=== PATIENT | female | born 1995 | race Two or more races ===

== ENCOUNTER 2020-04-21 09:33 | Outpatient (REF) | payer OTHER, SELFPAY | END 2020-04-21 09:34 | disposition home or self-care (01) | LOC: HO.LAB 09:33 | PROVIDERS: Visit Provider Obstetrics & Gynecology | DX: O20.0 Threatened abortion (principal) | CPT/HCPCS: 81025; 87086 ==

== ENCOUNTER 2020-04-28 10:13 | Outpatient (REF) | payer OTHER, SELFPAY ==
--- NOTE | 2020-04-28 | US_ITS ---
EXAMINATION: ULTRASOUND OB LESS THAN 14 WEEKS CLINICAL INFORMATION: Threatened . COMPARISON: None TECHNIQUE: Transabdominal ultrasound pelvis is performed. FINDINGS: The uterus is anteverted measuring 9.90 cm in length, 5.4 cm in AP and 6.8 cm wide. Live intrauterine fetus with visualization of yolk sac and gestational sac. [place]-rump length measures 0.30 cm corresponding to 6 weeks 0 days and SCARLET of 12/22/2020. No motion seen. The heart rate measures 115 beats per minute. A small subchorionic bleed is visualized measuring 1.4 x 0.9 x 1.1 cm. Right ovary measures 4.1 x 2.4 x 2.8 cm. There is anechoic cyst measuring 2.2 x 1.7 x 1.8 cm likely corpus luteal cyst. Left ovary measures 3.1 x 1.6 x 2.3 cm. It appears unremarkable. There is no free fluid. US/US OB transvaginal IMPRESSION: 1. Single live intrauterine fetus with ultrasound gestational age of 6 weeks and 0 days. 2. There is small subchorionic hemorrhage seen. 3. Small corpus luteal cyst seen in right ovary.
--- NOTE | 2020-04-28 10:17 | US_ITS ---
EXAMINATION: ULTRASOUND OB LESS THAN 14 WEEKS CLINICAL INFORMATION: Threatened . COMPARISON: None TECHNIQUE: Transabdominal ultrasound pelvis is performed. FINDINGS: The uterus is anteverted measuring 9.90 cm in length, 5.4 cm in AP and 6.8 cm wide. Live intrauterine fetus with visualization of yolk sac and gestational sac. [place]-rump length measures 0.30 cm corresponding to 6 weeks 0 days and SCARLET of 12/22/2020. No motion seen. The heart rate measures 115 beats per minute. A small subchorionic bleed is visualized measuring 1.4 x 0.9 x 1.1 cm. Right ovary measures 4.1 x 2.4 x 2.8 cm. There is anechoic cyst measuring 2.2 x 1.7 x 1.8 cm likely corpus luteal cyst. Left ovary measures 3.1 x 1.6 x 2.3 cm. It appears unremarkable. There is no free fluid. US/US OB <= 14 weeks fetus IMPRESSION: 1. Single live intrauterine fetus with ultrasound gestational age of 6 weeks and 0 days. 2. There is small subchorionic hemorrhage seen. 3. Small corpus luteal cyst seen in right ovary.
== END 2020-04-28 10:14 | disposition home or self-care (01) ==
LOC: HO.US 10:13
PROVIDERS: PCP Hospitalist; Visit Provider Obstetrics & Gynecology
DX: O20.0 Threatened abortion (principal)
CPT/HCPCS: 76801; 76817

== ENCOUNTER → 2020-05-12 09:56 | Outpatient (BNVA) | payer OTHER, SELFPAY | PROVIDERS: PCP Nurse Practitioner Family; Visit Provider Advanced Practice Midwife | DX: Z76.89 Persons encountering health services in other specified circumstances (principal) | CPT/HCPCS: 99212 ==

== ENCOUNTER 2020-06-04 10:11 | Outpatient (REF) | payer OTHER, SELFPAY ==
[2020-06-05 11:44] LABS: BV Int Neg Control Negative (Negative); BV Int Pos Control Positive (Positive)
[2020-06-05 13:26] LABS: C. trachomatis RNA TMA NOT DETECTED (NOT DETECTED); N. gonorrhoeae RNA TMA NOT DETECTED (NOT DETECTED)
== END 2020-06-04 10:12 | disposition home or self-care (01) ==
LOC: HO.LAB 10:11
PROVIDERS: Visit Provider Obstetrics & Gynecology
DX: O26.899 Other specified pregnancy related conditions, unspecified trimester (principal); R25.2 Cramp and spasm; R11.0 Nausea
CPT/HCPCS: 36415; 81003; 87480; 87491; 87510; 87591; 87660; 99212

== ENCOUNTER 2020-06-11 12:30 | Outpatient (REF) | payer OTHER, SELFPAY ==
--- NOTE | 2020-06-11 12:38 | US_ITS ---
EXAMINATION: OBSTETRICAL ULTRASOUND, FIRST TRIMESTER HISTORY: 24-year-old at 12.4 weeks of gestation NT screening COMPARISON: 04/28/2020 TECHNIQUE: Real time transabdominal imaging with color and M-mode Doppler. FINDINGS: A single, live IUP CRL of 61.0 mm c/w 12.4wks is noted. Heart Rate: 160 beats per minute. Normal yolk sac seen. NT was 1.54.mm. NB Present The embryo appears sonographically wnl for this GA. Both maternal ovaries are seen and appear normal. GESTATIONAL AGE: 1. Established GA: 12.4 wks 2. GA from [facility]: 12.4 wks ESTIMATED DATE OF DELIVERY: 1. Established SCARLET: 12/22/2020 2. SCARLET from [facility]: 12/20/2020 US/US OB 1T nuc measure IMPRESSION: 1. A single live IUP 2. Size equals dates 3. NT of 1.54 mm MFM Consultation: I reviewed the ultrasound findings along with significance of NT measurement. The NT of less than 3mm is generally reassuring. However, the sensitivity for T21 detection is only 60%. I reviewed the availability of serum aneuploidy screening which includes cell-free DNA and placental protein based tests. I discussed the sensitivity, false-positive rate, and other limitations associated with each test. I also reviewed the availability of invasive diagnostic tests that are associated small but definite risk of miscarriage. We also reviewed the differences between screening tests and diagnostic tests. After our discussion, she opted for the First trimester screening that is based on cell-free DNA or non-invasive testing (NIPT). The result will be faxed to your office in approximately 7 days. A follow up at 18 weeks for survey has been scheduled. Thank you very much for this referral. Majority of this visit was spent reviewing her care and counselling her in face to face time: Time spent 30 min.
== END 2020-06-11 12:31 | disposition home or self-care (01) ==
LOC: HO.US 12:30
PROVIDERS: Absent Provider Obstetrics & Gynecology; PCP Hospitalist; Visit Provider Advanced Practice Midwife
DX: Z34.90 Encounter for supervision of normal pregnancy, unspecified, unspecified trimester (principal); Z36.82 Encounter for antenatal screening for nuchal translucency; Z3A.12 12 weeks gestation of pregnancy
CPT/HCPCS: 76813

== ENCOUNTER → 2020-06-30 09:28 | Outpatient (BNVA) | payer OTHER, SELFPAY | PROVIDERS: PCP Hospitalist; Visit Provider Obstetrics & Gynecology | DX: O09.622 Supervision of young multigravida, second trimester (principal) | CPT/HCPCS: 81003; 99212 ==

== ENCOUNTER 2020-07-14 14:23 | Outpatient (REF) | payer OTHER, SELFPAY | END 2020-07-14 14:24 | disposition home or self-care (01) | LOC: HO.LAB 14:23 | PROVIDERS: Visit Provider Internal Medicine | DX: Z20.822 Contact with and (suspected) exposure to COVID-19 (principal) | CPT/HCPCS: 36415; C9803; U0003; U0005 ==

== ENCOUNTER 2020-07-19 09:50 | Outpatient (REF) | payer OTHER, SELFPAY | END 2020-07-19 09:51 | disposition home or self-care (01) | LOC: HO.LAB 09:50 | PROVIDERS: Visit Provider Internal Medicine | DX: Z20.822 Contact with and (suspected) exposure to COVID-19 (principal) | CPT/HCPCS: 36415; C9803; U0003; U0005 ==

== ENCOUNTER → 2020-07-28 14:45 | Outpatient (BNVA) | payer OTHER, SELFPAY | PROVIDERS: Visit Provider Advanced Practice Midwife | DX: Z34.92 Encounter for supervision of normal pregnancy, unspecified, second trimester (principal) | CPT/HCPCS: 81003; 99212 ==

== ENCOUNTER 2020-07-28 15:30 | Outpatient (REF) | payer OTHER, SELFPAY | END 2020-07-28 15:31 | disposition home or self-care (01) | LOC: HO.LAB 15:30 | PROVIDERS: Visit Provider Internal Medicine | DX: Z20.822 Contact with and (suspected) exposure to COVID-19 (principal) | CPT/HCPCS: 36415; C9803; U0003; U0005 ==

== ENCOUNTER 2020-08-06 08:35 | Outpatient (REF) | payer OTHER, SELFPAY ==
--- NOTE | ~2020-08-06 | US_ITS ---
EXAMINATION: US OBSTETRICAL CLINICAL INFORMATION: 24-year-old at 20.4 weeks of gestation Suspected anomaly COMPARISON: 06/11/2020 TECHNIQUE: Real-time transabdominal ultrasound was performed using C1-5 megahertz transducer. FINDINGS: A single, active, fetus is seen in breech presentation. The placenta is anterior without previa, and the amniotic fluid volume is wnl. MEASUREMENTS: 1. Biparietal Diameter: 4.6 cm; 20.0 wks 2. Occipital Frontal Diameter: 6.26 cm 3. Head Circumference: 17.6 cm; 20.1 wks 4. Abdominal Circumference: 15.0 cm; 20.2 wks 5. Femur Length: 3.24 cm; 20.4 wks 6. Humerus Length: 3.1 cm; 20.2 wks 7. Tibia Length: 2.8 cm; 20.1 wks 8. Ulna Length: 2.74 cm; 20.1 wks 9. Lateral ventricle: 0.7 cm 10. Cerebellum: 2.0 cm; 20.5 wks 11. Cisterna Magna: 0.45 cm 12. Nuchal Fold: 7.0 mm 13. Heart Rate: 150 beats per minute Rt ovary: normal Lt ovary: normal Cervical length 4.0 cm on T/A. GESTATIONAL AGE: 1. Established GA: 20.4 wks 2. GA from [facility]: 20.1 wks ESTIMATED DATE OF DELIVERY: 1. Established SCARLET: 12/20/2020 2. SCARLET from [facility]: 12/23/2020 ANATOMY: A nuchal fold was thickened at 7 mm. The visualized anatomy includes but not limited to: 1. Cranium: Normal 2. Intracranial anatomy: cavum septum pellucidi, lateral ventricles, choroid plexus, cerebellum, posterior fossa, third and fourth ventricles. 3. face: orbits, lip/palate, profile, nasal bone 4. Heart: four-chamber view of the heart, ventricular septum, foramen ovale, pulmonary vein, left and right outflow tracts, three-vessel view, 3 vessel trachea view, aortic and ductal arches, situs.. 5. Diaphragm: Normal 6. Abdominal wall: Normal 7. Cord Insertion: Normal 8. Spine: Cervical, thoracic, lumbar, sacral. 9. Stomach: Normal size and shape 10. Right Kidney: Normal 11. Left Kidney: Normal 12. 3 vessel cord: Normal 13. Upper extremity: Open hands, fifth digit. 14. Lower extremity: Tibia, fibula, bilateral feet. 15. Bladder: Normal 16. Genitalia: Male, patient aware US/US OB /maternal detail IMPRESSION: 1. Single, living, intrauterine with appropriate biometry. 2. Thickened nuchal fold 3. AFV: wnl DISCUSSION: I discussed the increased risk of aneuploidy, congenital heart defect and other abnormalities with thickened nuchal fold. Although she had low risk N IPT and normal nuchal translucency in first trimester, increased nuchal fold is concerning. I recommended a referral to the [facility] for genetic/MFM consultation as well as echocardiography. We discussed the limitations of ultrasound in diagnosing aneuploidy and other congenital abnormalities. I reviewed the differences between screening test and diagnostic test. Amniocentesis was discussed and declined. She was informed that the baseline incidence of congenital abnormalities is approximately 3-5%. Not all these conditions are diagnosable in utero. RECOMMENDATIONS: 1. Referral to the [facility] as noted above. 2. f/u as indicated. Thank you for allowing me to participate in her care. Total time 30 minutes. The time spent was devoted to counseling the patient about the disease and diagnosis, coordinating care including reviewing her records, pertinent lab data and studies, as well as discussing diagnostic evaluation and workup, plan therapeutic interventions and future disposition of care. This includes any additional research needed to obtain further information in formulating the plan of care of this patient. This note was generated with a voice recognition program. Please excuse any errors which may have been overlooked during my review of this note. Sometimes these errors may affect the content or meaning of a given sentence.
== END 2020-08-06 08:36 | disposition home or self-care (01) ==
LOC: HO.US 08:35
PROVIDERS: Visit Provider Obstetrics & Gynecology
DX: Z34.82 Encounter for supervision of other normal pregnancy, second trimester (principal)
CPT/HCPCS: 76811

== ENCOUNTER → 2020-08-25 14:48 | Outpatient (BNVA) | payer OTHER, SELFPAY | PROVIDERS: Visit Provider Obstetrics & Gynecology | DX: O28.3 Abnormal ultrasonic finding on antenatal screening of mother (principal); Z3A.23 23 weeks gestation of pregnancy | CPT/HCPCS: 99212 ==

== ENCOUNTER 2020-09-24 14:32 | Outpatient (REF) | payer OTHER, SELFPAY ==
[2020-09-24 15:43] LABS: MANUAL DIFF FLAG NO
[2020-09-24 15:45] LABS: Basophils Percent Auto 0.3 % (0-2); Eosinophils Absolute Auto 0.1 X10*3/uL (0.0-0.4); Eosinophils Percent Auto 0.6 % (0-4); Hematocrit 32.2 % (37-47); Hemoglobin 10.7 g/dl (12.0-16.0); Imm Gran Abs Auto 0.02 X10*3/uL (0.00-0.03); Imm Gran Pct Auto 0.2 % (0.0-0.4); Lymphocytes Percent Auto 22.4 % (20-40); Mean Corpuscular HGB Conc 33.2 g/dl (31.0-35.0); Mean Corpuscular Hemoglobin 28.5 pg (27.0-33.0); Mean Corpuscular Volume 85.6 fL (80-98); Mean Platelet Volume 9.3 fL (9.4-12.3); Monocytes Absolute Auto 0.5 X10*3/uL (0.1-1.2); Neutrophils Absolute Auto 6.2 X10*3/uL (2.0-8.3); Neutrophils Percent Auto 70.5 % (45-73); Platelet Count 225 X10*3/uL (160-400); Red Blood Count 3.76 X10*6/uL (4.20-5.50); Red Cell Distribution Width 13.2 % (11.0-16.0); White Blood Count 8.8 X10*3/uL (4.8-10.8)
[2020-09-24 16:27] LABS: Syphilis Screen Nonreactive (Nonreactive)
[2020-09-27 04:11] LABS: HBsAGNum1 0.16 S/CO (0.00-0.99); Hepatitis B Surface Antigen Negative (Negative); ~HepC Num1 0.05 S/CO (0.00-0.79); ~Hepatitis C Antibody Nonreactive (Nonreactive)
[2020-09-27 04:30] LABS: HIV AB/AG Nonreactive (Nonreactive); HIV Num 1 0.06 S/CO (0.00-0.99)
== END 2020-09-24 14:33 | disposition home or self-care (01) ==
LOC: HO.LAB 14:32
PROVIDERS: Absent Provider Advanced Practice Midwife; PCP Hospitalist; Visit Provider Obstetrics & Gynecology
DX: O99.891 Other specified diseases and conditions complicating pregnancy (principal); M54.6 Pain in thoracic spine; Z3A.27 27 weeks gestation of pregnancy
CPT/HCPCS: 36415; 85025; 86762; 86780; 86787; 86803; 86850; 86900; 86901; 87340; 87389; 99212

== ENCOUNTER → 2020-10-13 15:10 | Outpatient (BNVA) | payer OTHER, SELFPAY | PROVIDERS: PCP Hospitalist; Visit Provider Advanced Practice Midwife | DX: O99.013 Anemia complicating pregnancy, third trimester (principal); Z3A.30 30 weeks gestation of pregnancy | CPT/HCPCS: 81003; 90471; 90715; 99212 ==

== ENCOUNTER → 2020-10-27 09:03 | Outpatient (BNVA) | payer OTHER, SELFPAY | PROVIDERS: PCP Hospitalist; Visit Provider Advanced Practice Midwife | DX: O36.63X0 Maternal care for excessive fetal growth, third trimester, not applicable or unspecified (principal); O99.213 Obesity complicating pregnancy, third trimester; Z3A.32 32 weeks gestation of pregnancy | CPT/HCPCS: 81003; 99212 ==

== ENCOUNTER 2020-10-29 13:31 | Outpatient (REF) | payer OTHER, SELFPAY ==
--- NOTE | ~2020-10-29 | US_ITS ---
EXAMINATION: OBSTETRICAL ULTRASOUND, Follow up HISTORY: 25-year-old at the 32.4 weeks of gestation Large for dates COMPARISON: 08/06/2020 TECHNIQUE: Real time transabdominal imaging with color and M-mode Doppler. PRESENTATION: Vertex PLACENTA LOCATION: Anterior without previa AMNIOTIC FLUID: MARC 11.9 cm MEASUREMENTS: 1. Biparietal Diameter: 8.1 cm; 32.3 wks 2. Head Circumference: 30.6 cm; 34.1 wks 3. Abdominal Circumference: 28.2 cm; 32.2 wks 4. Femur Length: 6.2 cm; 32.2 wks 5. Heart Rate: 140 beats per minute WEIGHT: EFW: 1972 grams (4 lbs 6 oz) -- 35 %. BIOPHYSICAL PROFILE: Motion: 2 Tone: 2 Breathin Amniotic Fluid: 2 Total score: 8/8 GESTATIONAL AGE: 1. Established GA: 32.6 wks 2. GA from [facility]: 32.4 wks ESTIMATED DATE OF DELIVERY: 1. Established SCARLET: 12/20/2020 2. SCARLET from [facility]: 12/18/2020 US/US OB follow up IMPRESSION: 1. A single active fetus is in vertex presentation 2. Size equals dates 3. Reassuring biophysical profile I reviewed today's findings and the limitations of ultrasound and estimating weights. There is normal amount of amniotic fluid volume and the fetus is active. No further ultrasound has been scheduled at this time. Thank you very much for this referral. Total time 20 minutes. The time spent was devoted to counseling the patient about the disease and diagnosis, coordinating care including reviewing her records, pertinent lab data and studies, as well as discussing diagnostic evaluation and workup, plan therapeutic interventions and future disposition of care. This includes any additional research needed to obtain further information in formulating the plan of care of this patient. This note was generated with a voice recognition program. Please excuse any errors which may have been overlooked during my review of this note. Sometimes these errors may affect the content or meaning of a given sentence.
== END 2020-10-29 13:32 | disposition home or self-care (01) ==
LOC: HO.US 13:31
PROVIDERS: Visit Provider Advanced Practice Midwife
DX: O36.63X0 Maternal care for excessive fetal growth, third trimester, not applicable or unspecified (principal); Z3A.32 32 weeks gestation of pregnancy
CPT/HCPCS: 76816

== ENCOUNTER → 2020-11-10 10:27 | Outpatient (BNVA) | payer OTHER, SELFPAY | PROVIDERS: Visit Provider Advanced Practice Midwife | DX: Z34.93 Encounter for supervision of normal pregnancy, unspecified, third trimester (principal); Z3A.34 34 weeks gestation of pregnancy | CPT/HCPCS: 81003; 99212 ==

== ENCOUNTER 2020-11-25 14:31 | Outpatient (REF) | payer OTHER, SELFPAY ==
[2020-11-26 04:50] LABS: CT PCR NOT DETECTED (Not Detect.); NG PCR NOT DETECTED (Not Detect.)
== END 2020-11-25 14:32 | disposition home or self-care (01) ==
LOC: HO.LAB 14:31
PROVIDERS: Visit Provider Advanced Practice Midwife
DX: Z34.93 Encounter for supervision of normal pregnancy, unspecified, third trimester (principal); Z3A.36 36 weeks gestation of pregnancy
CPT/HCPCS: 87081; 87147; 87491; 87591; 99212

== ENCOUNTER → 2021-01-12 13:31 | Outpatient (BNVA) | payer OTHER, SELFPAY | PROVIDERS: Visit Provider Advanced Practice Midwife | DX: Z39.2 Encounter for routine postpartum follow-up (principal); Z30.011 Encounter for initial prescription of contraceptive pills | CPT/HCPCS: 99212 ==

== ENCOUNTER → 2021-07-11 14:24 | Outpatient (BNVA) | payer OTHER, SELFPAY | PROVIDERS: Visit Provider Advanced Practice Midwife | DX: Z30.41 Encounter for surveillance of contraceptive pills (principal) | CPT/HCPCS: 81025 ==

== ENCOUNTER 2022-07-12 12:41 | Outpatient (REF) | payer OTHER, SELFPAY ==
[2022-07-12 14:58] LABS: Hematocrit 42.7 % (37.0-47.0); Hemoglobin 13.9 g/dl (12.0-16.0); Mean Corpuscular HGB Conc 32.6 g/dl (31.0-35.0); Mean Corpuscular Hemoglobin 27.6 pg (27.0-33.0); Mean Corpuscular Volume 84.7 fL (80.0-98.0); Mean Platelet Volume 9.5 fL (9.4-12.3); Platelet Count 271 X10*3/uL (160-400); Red Blood Count 5.04 X10*6/uL (4.20-5.50); Red Cell Distribution Width 13.1 % (11.0-16.0); White Blood Count 6.7 X10*3/uL (4.8-10.8)
[2022-07-12 16:48] LABS: Thyroid Stimulating Hormone 0.84 uIU/mL (0.32-4.0)
[2022-07-12 18:08] LABS: CT PCR NOT DETECTED (Not Detect.); NG PCR NOT DETECTED (Not Detect.)
== END 2022-07-12 12:42 | disposition home or self-care (01) ==
LOC: HO.LAB 12:41
PROVIDERS: Visit Provider Advanced Practice Midwife
DX: Z01.419 Encounter for gynecological examination (general) (routine) without abnormal findings (principal); N92.0 Excessive and frequent menstruation with regular cycle; Z20.2 Contact with and (suspected) exposure to infections with a predominantly sexual mode of transmission
CPT/HCPCS: 0353U; 84443; 85027; 88142

== ENCOUNTER 2023-01-26 08:44 | Emergency (ER) | payer OTHER, SELFPAY ==
[2023-01-26 08:53] VITALS: BP 99/65; PULSE 78; RESP 17; TEMP 36.8; O2SAT 99; BMI 29.5
--- NOTE | 2023-01-26 09:25 | ED.FEMALEGU ---
HPI - Female Genitourinary General Chief complaint: Urogenital-Female Stated complaint: UTI? Time Seen by Provider: 01/26/23 09:24 Source: patient, RN notes reviewed and old records reviewed Mode of arrival: ambulatory History of Present Illness HPI Narrative: 27-year-old female with a past medical history of asthma presenting to the ED complaining of suspected UTI with dysuria & urinary frequency x2 days. has been increasing water intake /drinking cranberry juice with some relief. LMP ended 01/21. Reports chronic back pain with menstruation which just ended, unchanged. Denies fever/chills, abdominal pain, nausea /vomiting, vaginal bleeding /discharge MD elicited complaint: dysuria and UTI Related Data Previous Rx's Medication Instructions Recorded norethindrone acetate 1.5 1 tab PO DAILY 3 months #90 tabs 07/12/22 mg-ethinyl estradiol 30 mcg tablet (Microgestin) nitrofurantoin 100 mg PO Q12H 7 days #14 caps 01/26/23 monohydrate/macrocrystals 100 mg capsule (Macrobid) phenazopyridine 200 mg tablet 200 mg PO TID PRN pain 6 doses #6 01/26/23 (Pyridium) tabs Allergies Allergy/AdvReac Type Severity Reaction Status Date / Time No Known Allergies Allergy Verified 07/12/22 13:03 Review of Systems Review of Systems: Constitutional: No Fever, No Chills ENT/Mouth: No Ear Pain, No Nasal Congestion, No sore throat, No Rhinorrhea, No Swallowing Difficulty Cardiovascular: No Chest Pain, No SOB Respiratory: No Cough, No Sputum Gastrointestinal: No Nausea, No Vomiting, No Abdominal pain Genitourinary: + Dysuria, +Urinary Frequency, No Hematuria, No Urinary Incontinence/retention, No Urgency, No Flank Pain Musculoskeletal: No joint pain, No Myalgias, No Joint Swelling Skin: No Skin Lesions, No rash Neuro: No Weakness, No Numbness, No Paresthesias Yes all other systems are reviewed and are negative Constitutional: Constitutional: Reports as per [facility] Past Medical History Attestation statement: The following information was validated with the patient. Source: old records reviewed Medical History History of asthma Family History Family History Mother Pre-diabetes Father History of hypertension Maternal Grandmother No problems noted. Maternal Grandfather No problems noted. Paternal Grandmother No problems noted. Paternal Grandfather No problems noted. Sister No problems noted. Social History Social History Household Members: Significant Other and Children Alcohol intake: never Smoked in Last 30 Days: No Advance Directives: No Advance Directives Information Provided: Yes Patient : No Sexual orientation: Straight/Heterosexual Gender identity: Female Physical Exam Vital Signs: Vital Signs: Last Vital Signs Temp 98.2 F 01/26/23 08:53 Pulse 78 01/26/23 08:53 Resp 17 01/26/23 08:53 BP 99/65 01/26/23 08:53 Pulse Ox 99 01/26/23 08:53 O2 Del Method Room Air 01/26/23 08:53 BMI result Body Mass Index 29.5 Const: General: cooperative, healthy appearing and no acute distress Orientation/consciousness: patient oriented x3 Limitations: no limitations HEENT: Head: Yes normal to inspection and Yes atraumatic Ears: hearing grossly normal bilaterally General nose exam: Normal external nose present Face and sinus: Yes normal facial exam Eyes: General: appearance normal, both eyes and all related structures EOM: EOMs intact bilaterally Neck: Neck: Yes normal visual inspection and Yes no meningeal signs Resp: Effort & Inspection: normal respiratory effort and no respiratory distress Cardio: Rate: regular rate GI: Inspection: Yes normal to inspection Palpation (GI): Soft to palpation, nontender, no guarding and not rigid : General: Yes no CVA tenderness Back/Spine/Pelvis: Back: no CVA tenderness Skin: Rashes: no rashes Wounds: no wounds Neuro: General: patient oriented x3, tone normal and no meningeal signs Cranial nerves: Yes CN's II-XII intact bilaterally Gait exam (Neuro): Normal gait present Extrem: General: Yes normal to inspection Course Course Course Narrative: - UA infected. negative Results discussed with patient including worrisome signs and symptoms and strict return precautions, and when to return to the emergency department. They verbalized understanding and feel safe for discharge at this time. Medical Decision Making Medical Decision Making MDM Narrative: 27-year-old female with a past medical history of asthma presenting to the ED complaining of suspected UTI with dysuria & urinary frequency x2 days. on exam vital signs stable, NAD, nontoxic appearing, abdomen soft/ nontender, no CVAT. Concern for UTI. Lower suspicion for pyelo/renal stone, STI, ovarian torsion or appendicitis/ diverticulitis plan: UA, urine Please refer to course for remaining clinical decision making, interpretation of labs/imaging results, and discussions with consultants and/or family members. Differential Diagnosis Differential Diagnoses: The differential diagnosis associated with the presentation includes As above Admission/Observation Consideration of admission/observation: Escalation of care including admission/observation considered Lab Data MDM Lab Attestation statement: I reviewed the patient's lab results. Labs: Lab Results 01/26/23 Range/Units 09:08 Urine Color Yellow Urine Appearance Clear Urine pH 7.0 (5.0-9.0) Ur Specific [place] <= 1.005 (1.005-1.025) Urine Protein Negative (Neg-Trace) mg/dL Urine Glucose (UA) Negative (Negative) mg/dL Urine Ketones Negative (Negative) mg/dL Urine Blood Negative (Negative) Urine Nitrite Negative (Negative) Ur Leukocyte Esterase Moderate (2+) H (Negative) Urine RBC 0-2 (0-2) /HPF Urine WBC 11-20 H (0-5) /HPF Ur Squamous Epith Cells 3-5 (0-2) /HPF Urine Bacteria None Seen (None Seen) Hyaline Casts 0-2 (0-2) /LPF Urine Test NEGATIVE (NEGATIVE) External Record Review External record reviewed: Inpatient record, Office record, Outpatient record, Prior outpatient labs, Prior outpatient radiology, Primary care record and Outside ED record Tests considered The following testing was considered but not selected: As above Prescription Management I considered prescription management with: Pain Medication and Antibiotic Discharge Plan Discharge Clinical Impression: Urinary tract infection Patient Disposition: Home, Self-Care Instructions: Urinary Tract Infection in Women (DC) Additional Instructions: you have a urinary tract infection Macrobid is an antibiotic please take as prescribed Pyridium will help with urinary discomfort, this turns your urine orange this is normal Her urine was negative Follow-up with her doctor If symptoms persist or worsen you develop abdominal pain, back pain, nausea / vomiting or fever return to the ED Prescriptions: New phenazopyridine [Pyridium] 200 mg tablet 200 mg PO TID PRN (Reason: pain) Qty: 6 0RF nitrofurantoin monohyd/m-cryst [Macrobid] 100 mg capsule 100 mg PO Q12H 7 Days Qty: 14 0RF Rx Instructions: must administer with a meal/food No Action norethindrone ac-eth estradiol [Microgestin 1.5 (21)] 1.5-30 mg-mcg tablet 1 tab PO DAILY 90 Days Qty: 90 4RF Referrals: Physician,None [Primary Care Provider] - Interventions: ED Discharge Assessment Last Done: 01/26/23 09:49 Discharge Date/Time: 01/26/23 09:50
[2023-01-26 09:30] LABS: Appearance Urine Clear; Color Urine Yellow; Glucose Urine UA Negative (Negative); Leukocyte Esterase Urine Moderate (2+) (Negative); Nitrite Urine Negative (Negative); Specific Gravity - Urine <= 1.005 (1.005-1.025); UMIC TRIGGER UACC YES; Urine Blood Negative (Negative); Urine Ketones Negative (Negative); Urine Protein Negative (Neg-Trace)
[2023-01-26 09:34] LABS: UPreg QC Valid YES; Urine Pregnancy NEGATIVE (NEGATIVE)
[2023-01-26 09:35] LABS: Bacteria Urine None Seen (None Seen); Hyaline Casts Urine 0-2 /LPF (0-2); RBC Urine 0-2 /HPF (0-2); UACC Culture Trigger YES
== END 2023-01-26 09:50 | disposition home or self-care (01) ==
PROVIDERS: Emergency Provider Emergency Medicine Emergency Medical Services
DX: N39.0 Urinary tract infection, site not specified (principal); B95.7 Other staphylococcus as the cause of diseases classified elsewhere
CPT/HCPCS: 81001; 81025; 87086; 87088; 87186; 99282; 99283; 99284

== ENCOUNTER 2023-03-12 11:12 | Outpatient (AMB) | payer OTHER, SELFPAY ==
[2023-03-12 11:15] VITALS: BP 108/70; BMI 29.3
--- NOTE | 2023-03-12 11:15 | MHC.PC.OV ---
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 Accompanied by: Self / Same As Patient Allergies No Known Allergies Allergy (Verified 03/12/23 11:24) Medication List - Last Reconciled 03/12/23 by CYRIL Wright norethindrone ac-eth estradiol 1.5-30 mg-mcg (Microgestin) 1 tab PO DAILY 3 months Tobacco use date assessed: 03/12/23 Dental Screening Dental Screen Date: 03/12/23 Did you have a dental visit in the last 12 months?: Yes Did you have a dental problem in the last 6 months where you did not have access to dental care?: No Was dental information given to patient?: Patient has dentist HPI HPI Comments History of Present Illness Details 27-year-old female new patient presents today to establish care, previous patient Nabila Ochoa. Past medical history significant for Asthma, patient reports 1x a day requiring albuterol. Patient reports has been using her son's inhaler as she has not had 1. Prescription sent for albuterol inhaler. PFTs ordered and referral entered to pulmonology Fatigued x 2 years, patient reports she did have iron deficiency anemia during . Labs ordered to further evaluate. [facility] Medical History History of asthma Surgical History History of eye surgery History of wisdom tooth extraction Family History Mother Pre-diabetes Father History of hypertension Maternal Grandmother No problems noted. Maternal Grandfather No problems noted. Paternal Grandmother No problems noted. Paternal Grandfather No problems noted. Sister No problems noted. Social History (Updated 03/12/23 @ 11:25 by CYRIL Wright) Household Members: Significant Other and Children Both parents involved: Yes Housing: Apartment Alcohol intake: current Alcohol intake frequency: holidays/special occasions only Patient Tobacco Use Status: Never used Tobacco Smoked in Last 30 Days: No e-Cigarette/Vaping Use: Never Used Second Hand Smoke Exposure: No Use of substances other than those prescribed or required for medical reasons: No service: No Current occupational status: unemployed Sexual orientation: Straight/Heterosexual Gender identity: Female Cognitive needs: No Hearing needs: No Vision needs: No Female Reproductive History Menstrual Age of Menarche: 14 Questionnaire PHQ-9 Over the last 2 weeks, how often have you been bothered by any of the following problems? 1. Little interest or pleasure in doing things: not at all 2. Feeling down, depressed, or hopeless: not at all 3. Trouble falling or staying asleep, or sleeping too much: not at all 4. Feeling tired or having little energy: not at all 5. Poor appetite or overeating: not at all 6. Feeling bad about yourself - or that you are a failure or have let yourself or your family down: not at all 7. Trouble concentrating on things, such as reading the newspaper or watching television: not at all 8. Moving or speaking so slowly that other people could have noticed. Or the opposite - being so fidgety or restless that you have been moving around a lot more than usual: not at all 9. Thoughts that you would be better off or of hurting yourself in some way: not at all Total score: 0 Depression Screening Interpretation: Negative Depression Screening Done: Yes 20828 - PHQ-9 Billing: Yes Source: Developed by Drs. Randal Douglas, Carmen Khoury, aBy Santiago and colleagues, with an educational shiva from [employer] Thrive Questionnaire Date Thrive assessed: 03/12/23 I am a: Patient What is your living situation today?: I have a steady place to live Within the past 12 months, did the food you bought not last and you didn't have the money to get more?: Never true Within the past 12 months, did you worry whether your food would run out before you got money to buy more?: Never true Do you have trouble paying for medicines?: No Do you have trouble getting transportation to medical appointments?: No Do you have trouble paying your heating and electricity bill?: No Do you have trouble taking care of your child, family member or friend?: No Do you have trouble with day-to-day activities such as bathing, preparing meals, shopping, managing finances, etc.?: No Are you currently unemployed and looking for a job?: No Are you interested in more education?: No Please select the resources that you would like help with: None Currently or been in a relationship where the following occur: no concerns reported JAIDEN-7 AMB Questionnaire JAIDEN-7 Date JAIDEN - 7 assessed: 03/12/23 Feeling nervous, anxious, or on edge: 3 = Nearly every day Not being able to stop or control worryin = Several days Worrying too much about different things: 1 = Several days Trouble relaxin = Not at all Being so restless that it is hard to sit still: 0 = Not at all Becoming easily annoyed or irritable: 0 = Not at all Feeling afraid as if something awful might happen: 1 = Several days Total JAIDEN-7 score (0-4 normal; 5-9 mild; 10-14 moderate; 15-21 severe): 6 Source: Developed by Drs. Randal Douglas, Carmen Khoury, Bay Santiago and colleagues, with an educational shiva from [employer] JAIDEN-7 Assessment Billing JAIDEN-7 Assessment Tool: JAIDEN-7 Assessment 55821 Review of Systems Const Denies chills, Reports fatigue, Denies fever(s) and Denies poor appetite Eyes Denies no additional complaints ENT Reports Normal hearing present Card Denies chest pain, Denies syncope, Denies rapid heart rate and Denies dyspnea Resp Denies cough and Denies dyspnea GI Denies change in stool character, Denies constipation, Denies diarrhea, Denies nausea and Denies vomiting Denies urinary frequency, Denies dysuria and Denies urinary urgency Neuro Reports Normal hearing present, Denies confusion and Denies syncope Psych Denies confusion Endo Reports fatigue Physical exam (Primary Care) Vital Signs: Last Vital Signs BP 108/70 03/12/23 11:15 BMI result Body Mass Index 29.3 Tobacco/Smoking Status: Tobacco use Status Tobacco use date assessed 03/12/23 03/12/23 11:22 Patient Tobacco Use Status Never used Tobacco 03/12/23 11:25 e-Cigarette/Vaping Use Never Used 03/12/23 11:25 PHQ-9: PHQ-9 Score PHQ-9: Total score 0 03/12/23 12:03 Depression Screening Interpretation: Negative Thrive Assessment: Date of Thrive Assessment Date Thrive assessed 03/12/23 03/12/23 11:22 Currently or been in a relationship where the following occur: no concerns reported Const General: No confusion Orientation/consciousness: No confusion HENMT Head: Yes normocephalic and Yes atraumatic Eyes Conjunctivae: conjunctivae normal Chest Chest palpation & inspection: normal inspection of the chest Resp Effort & Inspection: normal respiratory effort Auscultation: clear to auscultation bilaterally, no crackles, no rhonchi and no wheezes Cardio Rate: regular rate Rhythm: regular rhythm Heart sounds: S1 normal heart sound present and S2 normal heart sound present GI Inspection: Yes normal to inspection Neuro General: No confusion Cranial nerves: Yes Normal hearing present Extrem General: No edema Office Procedures Flu Questionnaire Does the patient have a severe egg allergy?: No Immunizations flu vacc [id number] 6mos up(PF) 60 mcg(15 mcgx4)/0.5 mL IM syringe Performing Provider: CYRIL Wright [facility] Documented (not given) by: JOCELYNE Victor on 03/12/23 12:03 Reason Not Given: Not Given Assessment and Plan Assessment & Plan (1) History of asthma: Code(s): Z87.09 - Personal history of other diseases of the respiratory system Plan: Continue on albuterol as needed. PFTs ordered, referral entered to pulmonology. (2) Fatigue: Code(s): R53.83 - Other fatigue Plan: Complete blood work ordered to further evaluate. Plan Keep scheduled physical exam with pcp Orders: Orders IRON PROFILE Today R53.83 - Other fatigue Ferritin Today R53.83 - Other fatigue PFT pulmonary function test Today Z87.09 - Personal history of other diseases of the respiratory system Complete Blood Count Auto Diff Today R53.83 - Other fatigue Comprehensive Met. Panel Today R53.83 - Other fatigue TSH reflex Free T4 Today R53.83 - Other fatigue Influenza [id number] Immunization Today Z23 - Encounter for immunization Referrals Pulmonology Referral Z87.09 - Personal history of other diseases of the respiratory system Medications: New flu vacc [id number] 6mos up(PF) 0.5 mL IM ONCE 0.5 mL 0RF Z23 - Encounter for immunization albuterol sulfate 90 mcg/actuation 2 puffs inhalation Q4-6H PRN 6.7 grams 0RF shortness of breath or wheezing Coding Level of Care Code Est Pt Level 3 (09946) Diagnoses History of asthma Z87.09 Fatigue R53.83 Additional Codes JAIDEN-7 Assessment Billing - JAIDEN-7 Assessment Tool: JAIDEN-7 Assessment 91105 ([id number])
== END 2023-03-12 11:43 | disposition home or self-care (01) ==
PROVIDERS: Visit Provider Nurse Practitioner Family
DX: R53.83 Other fatigue (principal); Z87.09 Personal history of other diseases of the respiratory system
CPT/HCPCS: 99213

== ENCOUNTER 2023-03-14 09:04 | Outpatient (REF) | payer OTHER, SELFPAY ==
[2023-03-14 09:13] LABS: MANUAL DIFF FLAG NO
[2023-03-14 09:34] LABS: Basophils Absolute Auto 0.1 X10*3/uL (0.0-0.2); Basophils Percent Auto 1.7 % (0-2); Eosinophils Absolute Auto 0.1 X10*3/uL (0.0-0.4); Eosinophils Percent Auto 2.6 % (0-4); Hematocrit 42.2 % (37.0-47.0); Hemoglobin 13.7 g/dl (12.0-16.0); Imm Gran Abs Auto 0.02 X10*3/uL (0.00-0.03); Imm Gran Pct Auto 0.4 % (0.0-0.4); Lymphocytes Absolute Auto 1.9 X10*3/uL (1.2-4.9); Mean Corpuscular HGB Conc 32.5 g/dl (31.0-35.0); Mean Corpuscular Hemoglobin 27.5 pg (27.0-33.0); Mean Corpuscular Volume 84.7 fL (80.0-98.0); Mean Platelet Volume 8.9 fL (9.4-12.3); Monocytes Absolute Auto 0.4 X10*3/uL (0.1-1.2); Monocytes Percent Auto 8.3 % (2-11); Neutrophils Absolute Auto 2.1 x10*3/uL (2.0-8.3); Platelet Count 301 X10*3/uL (160-400); Red Blood Count 4.98 X10*6/uL (4.20-5.50); Red Cell Distribution Width 12.9 % (11.0-16.0); White Blood Count 4.6 X10*3/uL (4.8-10.8)
[2023-03-14 10:49] LABS: Alanine Aminotransferase 13 U/L (0-31); Albumin Level 4.2 g/dL (3.5-5.0); Alkaline Phosphatase 52 U/L (39-117); Anion Gap 14 (12-20); Aspartate Amino Transferase 15 U/L (5-31); Bilirubin Total 0.3 mg/dL (0.0-1.0); Blood Urea Nitrogen 9 mg/dL (9-16); Calcium 9.1 mg/dL (8.4-10.2); Carbon Dioxide 24 mmol/L (22-29); Chloride 108 mmol/L (96-108); Estimated Glomerular Filt Rate > 60; Glucose Random 80 mg/dL (60-115); Iron 36 mcg/dL (30-160); Percent Iron Saturation 10 % (15-50); Potassium 3.9 mmol/L (3.3-5.1); Sodium 142 mmol/L (135-145); Total Iron Binding Capacity 376 mcg/dL (228-428); Total Protein 7.7 g/dL (6.5-8.0); Unsaturated Iron Binding 340 ug/dL
[2023-03-14 11:11] LABS: Ferritin 6 ng/mL (10-122); TSH reflex Free T4 0.93 uIU/mL (0.32-4.0)
== END 2023-03-14 09:05 | disposition home or self-care (01) ==
LOC: HO.LAB 09:04
PROVIDERS: PCP Internal Medicine; Visit Provider Nurse Practitioner Family
DX: R53.83 Other fatigue (principal)
CPT/HCPCS: 36415; 80053; 82728; 83540; 84443; 85025

== ENCOUNTER 2023-03-16 10:40 | Outpatient (AMB) | payer OTHER, SELFPAY ==
[2023-03-16 10:48] VITALS: BP 98/78; BMI 29.5
--- NOTE | 2023-03-16 10:48 | A.OFFPC_ITS ---
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 Accompanied by: Self / Same As Patient Allergies No Known Allergies Allergy (Verified 03/16/23 11:10) Medication List - Last Reconciled 03/16/23 by Maximo Luis MD albuterol sulfate 90 mcg/actuation 2 puffs inhalation Q4-6H PRN norethindrone ac-eth estradiol 1.5-30 mg-mcg (Microgestin) 1 tab PO DAILY 3 months Tobacco use date assessed: 03/16/23 Dental Screening Dental Screen Date: 03/16/23 Did you have a dental visit in the last 12 months?: Yes Did you have a dental problem in the last 6 months where you did not have access to dental care?: No Was dental information given to patient?: Patient has dentist HPI F/U HPI Details Patient comes in today for her follow up visit Was seen by midlevel here earlier this week for her initial visit - was a new patient to the practice then - and was sent for some screening labs when she complained of frequent fatigue She was also started back on Albuterol inhaler for her asthma - states that she's had asthma since her childhood years but does not have a rescue inhaler on hand and has been using her son's inhaler for the past couple of months States that she has been working at a [employer] place for the past 5 years now and is constantly exposed to nail slovenian (acrylic), which she feels aggravates her asthma She has been referred for PFT and pulmonary evaluation and is scheduled to have both of these done early next month Adds that she has 2 small children and wakes up at least 2 or 3 times a night when her younger child cries States that she has no trouble going back to sleep right away and on average, ge ts at least 7 to 8 hours of sleep at night She denies any headaches or dizziness Denies any chest pains No nausea/vomiting, no abdominal pain No change in bowel habits noted Would like to know how she did on her labs done a couple of days ago [facility] Medical History (Updated 03/16/23 @ 11:39 by Maximo Luis MD) Overweight (BMI 25.0-29.9) Asthma Surgical History (Updated 03/16/23 @ 11:16 by Maximo Luis MD) History of eye surgery History of wisdom tooth extraction Family History Mother Pre-diabetes Father History of hypertension Maternal Grandmother No problems noted. Maternal Grandfather No problems noted. Paternal Grandmother No problems noted. Paternal Grandfather No problems noted. Sister No problems noted. Social History Household Members: Significant Other and Children Both parents involved: Yes Housing: Apartment Alcohol intake: current Alcohol intake frequency: holidays/special occasions only Patient Tobacco Use Status: Never used Tobacco e-Cigarette/Vaping Use: Never Used Second Hand Smoke Exposure: No service: No Current occupational status: unemployed Sexual orientation: Straight/Heterosexual Gender identity: Female Cognitive needs: No Hearing needs: No Vision needs: No Female Reproductive History Menstrual Age of Menarche: 14 Questionnaire PHQ-9 Over the last 2 weeks, how often have you been bothered by any of the following problems? 1. Little interest or pleasure in doing things: not at all 2. Feeling down, depressed, or hopeless: not at all 3. Trouble falling or staying asleep, or sleeping too much: not at all 4. Feeling tired or having little energy: not at all 5. Poor appetite or overeating: not at all 6. Feeling bad about yourself - or that you are a failure or have let yourself or your family down: not at all 7. Trouble concentrating on things, such as reading the newspaper or watching television: not at all 8. Moving or speaking so slowly that other people could have noticed. Or the opposite - being so fidgety or restless that you have been moving around a lot more than usual: not at all 9. Thoughts that you would be better off or of hurting yourself in some way: not at all Total score: 0 Depression Screening Interpretation: Negative Depression Screening Done: Yes 93462 - PHQ-9 Billing: Yes Source: Developed by Drs. Randal Douglas, Carmen Khoury, Bay Santiago and colleagues, with an educational shiva from [employer]. Thrive Questionnaire Date Thrive assessed: 03/16/23 I am a: Patient What is your living situation today?: I have a steady place to live Within the past 12 months, did the food you bought not last and you didn't have the money to get more?: Never true Within the past 12 months, did you worry whether your food would run out before you got money to buy more?: Never true Do you have trouble paying for medicines?: No Do you have trouble getting transportation to medical appointments?: No Do you have trouble paying your heating and electricity bill?: No Do you have trouble taking care of your child, family member or friend?: No Do you have trouble with day-to-day activities such as bathing, preparing meals, shopping, managing finances, etc.?: No Are you currently unemployed and looking for a job?: No Are you interested in more education?: No Please select the resources that you would like help with: None Currently or been in a relationship where the following occur: no concerns reported AUDIT C Alcohol Use Questionnaire (AUDIT-C) 1. How often do you have a drink containing alcohol?: Never 3. How often do you have six or more drinks on one occasion?: Never Total Score: 0 Score Reviewed/Action Taken: Yes JAIDEN-7 AMB Questionnaire JAIDEN-7 Date JAIDEN - 7 assessed: 03/16/23 Feeling nervous, anxious, or on edge: 3 = Nearly every day Not being able to stop or control worryin = Several days Worrying too much about different things: 1 = Several days Trouble relaxin = Not at all Being so restless that it is hard to sit still: 0 = Not at all Becoming easily annoyed or irritable: 0 = Not at all Feeling afraid as if something awful might happen: 1 = Several days Total JAIDEN-7 score (0-4 normal; 5-9 mild; 10-14 moderate; 15-21 severe): 6 Source: Developed by Drs. Randal Douglas, Carmen Khoury, Bay Santiago and colleagues, with an educational shiva from [employer]. JAIDEN-7 Assessment Billing JAIDEN-7 Assessment Tool: JAIDEN-7 Assessment 37413 Review of Systems Const Denies chills, Denies difficulty sleeping, Reports fatigue, Denies fever(s) and Denies headache(s) ENT Denies dysphagia, Denies dizziness, Denies otalgia, Denies headache(s), Denies neck pain, Denies odynophagia and Denies sore throat Card Denies chest pain, Denies palpitations and Denies dyspnea Resp Denies chest congestion, Denies cough and Denies dyspnea GI Denies abdominal pain, Denies constipation, Denies dysphagia, Denies heartburn, Denies diarrhea, Denies nausea, Denies odynophagia and Denies vomiting Denies difficulty voiding, Denies nocturia and Denies dysuria Musc Denies back pain and Denies neck pain Skin/Breast Denies rash Neuro Denies dizziness and Denies headache(s) Endo Reports fatigue and Denies palpitations Physical exam (Primary Care) Vital Signs: Last Vital Signs BP 98/78 03/16/23 10:48 Oxygen Delivery Method Room Air 03/16/23 10:48 BMI result Body Mass Index 29.5 Tobacco/Smoking Status: Tobacco use Status Tobacco use date assessed 03/16/23 03/16/23 10:52 Patient Tobacco Use Status Never used Tobacco 03/16/23 10:52 e-Cigarette/Vaping Use Never Used 03/16/23 10:52 PHQ-9: PHQ-9 Score PHQ-9: Total score 0 03/16/23 10:52 Depression Screening Interpretation: Negative Thrive Assessment: Date of Thrive Assessment Date Thrive assessed 03/16/23 03/16/23 10:52 Currently or been in a relationship where the following occur: no concerns reported Const General: no acute distress and alert HENMT Ears: TM's normal bilaterally and EAC's normal Throat: Yes posterior oropharynx normal and Yes tonsils normal (no TP congestion) Neck Neck: Yes no lymphadenopathy and Yes supple Resp Auscultation: clear to auscultation bilaterally, no rales and no wheezes Cardio Rate: regular rate Rhythm: regular rhythm Heart sounds: no murmurs GI Palpation (GI): Soft to palpation and nontender Auscultation: normal bowel sounds Skin General skin exam: no rashes or lesions noted Rashes: no rashes Extrem General: Yes no clubbing, cyanosis or edema Results Reviewed Results Reviewed: Laboratory Tests 03/14/23 09:11 WBC 4.6 L Hgb 13.7 Hct 42.2 Plt Count 301 Sodium 142 Potassium 3.9 Creatinine 0.78 Estimated GFR > 60 Random Glucose 80 Calcium 9.1 Iron 36 TIBC 376 % Saturation 10 L Ferritin 6 L AST 15 ALT 13 Total Protein 7.7 Albumin 4.2 TSH 0.93 Assessment and Plan Assessment & Plan (1) Asthma: Code(s): J45.909 - Unspecified asthma, uncomplicated Qualifiers: Asthma severity: unspecified severity Asthma persistence: unspecified Asthma complication type: uncomplicated Qualified Code(s): J45.909 - Unspecified asthma, uncomplicated Plan: Continue Albuterol HFA 1 to 2 inhalations Q 6 hours PRN for now States that her chest feels better lately since she has her own Albuterol inhaler to use now when needed; was using her son's inhaler previously and was trying to use it as sparingly as possible She has been referred to and is now scheduled for PFTs on 04/16/2023 for further evaluation She is also scheduled to see pulmonary next month (04/18/23) for further evaluation and management of her asthma (2) Fatigue: Code(s): R53.83 - Other fatigue Qualifiers: Fatigue type: unspecified Qualified Code(s): R53.83 - Other fatigue Plan: Results of her labs done a couple of days ago reviewed and discussed with jennie zarate Is advised that there are no lab findings here that can help explain her fatigue - advised that her fatigue may be likely related to her asthma or to her having to wake up a few times in the middle of the night to tend to her youngest child Will wait and see how her PFTs and pulmonary evaluation comes out and we will address this further if this persists (3) Overweight (BMI 25.0-29.9): Code(s): E66.3 - Overweight Plan: Discussed diet/exercise as tolerated/lose weight Plan Follow up in 3 months Coding Level of Care Code Est Pt Level 4 (78077) Diagnoses Uncomplicated asthma, unspecified asthma severity, unspecified whether persistent J45.909 Asthma severity: unspecified severity Asthma persistence: unspecified Asthma complication type: uncomplicated Fatigue, unspecified type R53.83 Fatigue type: unspecified Overweight (BMI 25.0-29.9) E66.3 Additional Codes JAIDEN-7 Assessment Billing - JAIDEN-7 Assessment Tool: JAIDEN-7 Assessment 99344 ([id number])
== END 2023-03-16 11:24 | disposition home or self-care (01) ==
PROVIDERS: Visit Provider Internal Medicine
DX: J45.909 Unspecified asthma, uncomplicated (principal); R53.83 Other fatigue; E66.3 Overweight
CPT/HCPCS: 99214

== ENCOUNTER 2023-04-16 14:55 | Outpatient (REF) | payer OTHER, SELFPAY ==
--- NOTE | 2023-04-16 15:43 | PFT_ITS ---
Indication: Asthma Spirometry [FEV1 to FVC 81%; FEV1 3.26 L which is 103% predicted; FVC 4.01 L which is 99% predicted. No significant response to bronchodilators noted. Maximum voluntary ventilation 45% predicted.] Lung Volumes [Total lung capacity 108% predicted] Diffusion Capacity [DLCO 120% predicted] Flow Volume Loops [Normal] Comparisons [None] Interpretation [No obstructive nor restrictive ventilatory defects identified. No significant response to bronchodilators noted. There is a moderate to severe decrease in the maximum voluntary ventilation which could be secondary to deconditioning although cannot rule out neuromuscular disease. Lung volumes are within normal limits. Diffusing capacity also within normal limits. If asthma is in the differential a methacholine challenge may be helpful in assessing for hyperactive airways. Clinical correlation warranted.] MTDD
== END 2023-04-16 14:56 | disposition home or self-care (01) ==
LOC: HO.RESP 14:55
PROVIDERS: PCP Internal Medicine; Visit Provider Nurse Practitioner Family
DX: Z87.09 Personal history of other diseases of the respiratory system (principal)
CPT/HCPCS: 94010; 94727; 94729

== ENCOUNTER 2023-04-18 10:35 | Outpatient (REF) | payer OTHER, SELFPAY ==
[2023-04-18 11:41] LABS: MANUAL DIFF FLAG NO
[2023-04-18 12:06] LABS: Basophils Absolute Auto 0.1 X10*3/uL (0.0-0.2); Basophils Percent Auto 0.8 % (0-2); Eosinophils Absolute Auto 0.1 X10*3/uL (0.0-0.4); Eosinophils Percent Auto 1.1 % (0-4); Hematocrit 40.7 % (37.0-47.0); Imm Gran Abs Auto 0.02 X10*3/uL (0.00-0.03); Imm Gran Pct Auto 0.3 % (0.0-0.4); Lymphocytes Absolute Auto 2.3 X10*3/uL (1.2-4.9); Lymphocytes Percent Auto 34.9 % (20-40); Mean Corpuscular HGB Conc 31.9 g/dl (31.0-35.0); Mean Corpuscular Hemoglobin 27.1 pg (27.0-33.0); Mean Platelet Volume 9.3 fL (9.4-12.3); Monocytes Absolute Auto 0.4 X10*3/uL (0.1-1.2); Monocytes Percent Auto 5.3 % (2-11); Neutrophils Absolute Auto 3.8 x10*3/uL (2.0-8.3); Neutrophils Percent Auto 57.6 % (45-73); Platelet Count 284 X10*3/uL (160-400); Red Blood Count 4.79 X10*6/uL (4.20-5.50); Red Cell Distribution Width 12.8 % (11.0-16.0); White Blood Count 6.6 X10*3/uL (4.8-10.8)
== END 2023-04-18 10:36 | disposition home or self-care (01) ==
LOC: HO.LAB 10:35
PROVIDERS: PCP Internal Medicine; Referring Provider Internal Medicine; Visit Provider Internal Medicine Pulmonary Disease
DX: J45.909 Unspecified asthma, uncomplicated (principal); Z91.09 Other allergy status, other than to drugs and biological substances
CPT/HCPCS: 36415; 82785; 85025; 86003

== ENCOUNTER 2023-04-18 10:35 | Outpatient (AMB) | payer OTHER, SELFPAY ==
[2023-04-18 10:41] VITALS: BP 110/60; PULSE 83; O2SAT 98; BMI 30.8
--- NOTE | 2023-04-18 10:41 | MHC.OFFVIS ---
Intake Vital Signs 04/18/23 10:41 Height 5 ft 2 in Weight 168 lb 10.458 oz BMI 30.8 BP 110/60 Blood Pressure Location Rt brachial Position Sitting Pulse 83 Pulse Source Pulse Oximeter Pulse Oximetry (%) 98 Oxygen Delivery Method Room Air Intake Visit Reasons: diseases of the respiratory system Intake Note: Patient states having respiratory issues. Appellate Conferee Required: No Allergies No Known Allergies Allergy (Verified 04/18/23 10:44) HPI diseases of the respiratory system HPI Details 27-year-old lady, former minimal smoker, with underlying history of asthma since childhood referred for management of her asthma. 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 Her monitor has several pets. Patient denies family history of lung disease. Patient denies exposure to industrial dusts. [facility] Medical History (Updated 04/18/23 @ 10:55 by Aly Taylor MD) Overweight (BMI 25.0-29.9) Asthma Surgical History (Updated 03/16/23 @ 11:16 by Maximo Luis MD) History of eye surgery History of wisdom tooth extraction Family History Mother Pre-diabetes Father History of hypertension Maternal Grandmother No problems noted. Maternal Grandfather No problems noted. Paternal Grandmother No problems noted. Paternal Grandfather No problems noted. Sister No problems noted. Social History Household Members: Significant Other and Children Both parents involved: Yes Housing: Apartment Alcohol intake: current Alcohol intake frequency: holidays/special occasions only Patient Tobacco Use Status: Never used Tobacco e-Cigarette/Vaping Use: Never Used Second Hand Smoke Exposure: No service: No Current occupational status: unemployed Sexual orientation: Straight/Heterosexual Gender identity: Female Cognitive needs: No Hearing needs: No Vision needs: No Female Reproductive History Menstrual Age of Menarche: 14 Review of Systems Const Denies daytime sleepiness, Denies excessive sweating, Denies fatigue, Denies fever(s), Denies lethargy, Denies malaise, Denies night sweats, Denies snoring and Denies weight loss Eyes Denies blurry vision and Denies itchy eyes ENT Denies nasal congestion, Denies post nasal drip, Denies sinus pain, Denies sinus pressure and Denies other ( Thrush) Card Denies chest pain, Denies pedal edema, Denies dyspnea, Denies orthopnea and Denies paroxysmal nocturnal dyspnea Resp Denies cough, Denies hemoptysis, Denies excessive phlegm production, Denies dyspnea, Denies snoring and Reports wheezing GI Denies abdominal pain and Denies heartburn Musc Denies myalgias, Denies arthralgias and Denies joint swelling Skin/Breast Denies rash Neuro Denies memory loss and Denies seizure-like activity Psych Denies abnormal sleep pattern, Denies anxiety and Denies memory loss Endo Denies excessive sweating, Denies fatigue and Denies heat intolerance Damian/Lymph Denies easy bruising Aller/Immun Denies itchy eyes, Denies seasonal rhinorrhea and Reports wheezing Physical Exam Vital Signs: Last Vital Signs Pulse 83 04/18/23 10:41 BP 110/60 04/18/23 10:41 Pulse Ox 98 04/18/23 10:41 Oxygen Delivery Method Room Air 04/18/23 10:41 BMI result Body Mass Index 30.8 Const General: no acute distress and alert Nutritional Appearance: not obese Orientation/consciousness: Other orientation findings ( oriented) HEENT Head: Yes atraumatic Eyes General: appearance normal, both eyes and all related structures Sclerae: sclerae normal EOM: EOMs intact bilaterally Neck Neck: Yes supple Lymphatic: no lymphadenopathy noted Resp Effort & Inspection: normal respiratory effort and no use of accessory muscles Auscultation: clear to auscultation bilaterally Cardio Rate: regular rate Rhythm: regular rhythm Heart sounds: no gallops, no murmurs and no rubs Skin General skin exam: other ( warm) Extrem General: No clubbing, No cyanosis and No edema Assessment & Plan Assessment & Plan (1) Asthma: Code(s): J45.909 - Unspecified asthma, uncomplicated Qualifiers: Asthma severity: unspecified severity Asthma persistence: unspecified Asthma complication type: uncomplicated Qualified Code(s): J45.909 - Unspecified asthma, uncomplicated Plan: Results of pulmonary function test reviewed. Underlying asthma suboptimally controlled on albuterol MDI. Will start on Breo. (2) Environmental allergies: Code(s): Z91.09 - Other allergy status, other than to drugs and biological substances Plan: Underlying multiple environmental allergies. Will obtain IgE level, CBC with differential, and RAST panel for further evaluation. Orders: Orders Complete Blood Count Auto Diff Today J45.909 - Unspecified asthma, uncomplicated Rast Allergen Today J45.909 - Unspecified asthma, uncomplicated Medications: New Breo Ellipta 200-25 mcg/dose (fluticasone furoate-vilanterol) 1 inh inhalation DAILY 1 ea 6RF 30 days NS Coding Level of Care Code New Pt Level 4 (27532) Diagnoses Uncomplicated asthma, unspecified asthma severity, unspecified whether persistent J45.909 Asthma severity: unspecified severity Asthma persistence: unspecified Asthma complication type: uncomplicated Environmental allergies Z91.09
== END 2023-04-18 10:56 | disposition home or self-care (01) ==
PROVIDERS: PCP Internal Medicine; Referring Provider Internal Medicine; Visit Provider Internal Medicine Pulmonary Disease
DX: J45.909 Unspecified asthma, uncomplicated (principal); Z91.09 Other allergy status, other than to drugs and biological substances
CPT/HCPCS: 99204

== ENCOUNTER 2023-05-25 15:22 | Outpatient (AMB) | payer OTHER, SELFPAY ==
[2023-05-25 15:26] VITALS: BP 102/62; PULSE 90; O2SAT 100; BMI 30.6
--- NOTE | 2023-05-25 15:26 | MHC.OFFVIS ---
Intake Vital Signs 05/25/23 15:26 Height 5 ft 2 in Weight 167 lb 8.821 oz BMI 30.6 BP 102/62 Blood Pressure Location Rt brachial Position Sitting Pulse 90 Pulse Source Doppler Pulse Oximetry (%) 100 Oxygen Delivery Method Room Air Intake Visit Reasons: Asthma Allergies No Known Allergies Allergy (Verified 05/25/23 15:31) HPI Asthma HPI Details 27-year-old lady, former minimal smoker, with underlying history of asthma since childhood referred for management of her asthma. 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 Her monitor has several pets. Patient denies family history of lung disease. Patient denies exposure to industrial dusts. After the last office visit patient was started on Breo, however she was not able to tolerate powder inhaler. She did finish her immunologic testing. She denies an acute exacerbation. [facility] Medical History (Updated 04/18/23 @ 10:55 by Aly Taylor MD) Overweight (BMI 25.0-29.9) Asthma Surgical History (Updated 03/16/23 @ 11:16 by Maximo Luis MD) History of eye surgery History of wisdom tooth extraction Family History Mother Pre-diabetes Father History of hypertension Maternal Grandmother No problems noted. Maternal Grandfather No problems noted. Paternal Grandmother No problems noted. Paternal Grandfather No problems noted. Sister No problems noted. Social History Household Members: Significant Other and Children Both parents involved: Yes Housing: Apartment Alcohol intake: current Alcohol intake frequency: holidays/special occasions only Patient Tobacco Use Status: Never used Tobacco e-Cigarette/Vaping Use: Never Used Second Hand Smoke Exposure: No service: No Current occupational status: unemployed Sexual orientation: Straight/Heterosexual Gender identity: Female Cognitive needs: No Hearing needs: No Vision needs: No Female Reproductive History Menstrual Age of Menarche: 14 Review of Systems Const Denies daytime sleepiness, Denies excessive sweating, Denies fatigue, Denies fever(s), Denies lethargy, Denies malaise, Denies night sweats, Denies snoring and Denies weight loss Eyes Denies blurry vision and Denies itchy eyes ENT Denies nasal congestion, Denies post nasal drip, Denies sinus pain, Denies sinus pressure and Denies other ( Thrush) Card Denies chest pain, Denies pedal edema, Denies dyspnea, Denies orthopnea and Denies paroxysmal nocturnal dyspnea Resp Denies cough, Denies hemoptysis, Denies excessive phlegm production, Denies dyspnea, Denies snoring and Denies wheezing GI Denies abdominal pain and Denies heartburn Musc Denies myalgias, Denies arthralgias and Denies joint swelling Skin/Breast Denies rash Neuro Denies memory loss and Denies seizure-like activity Psych Denies abnormal sleep pattern, Denies anxiety and Denies memory loss Endo Denies excessive sweating, Denies fatigue and Denies heat intolerance Damian/Lymph Denies easy bruising Aller/Immun Denies itchy eyes, Denies seasonal rhinorrhea and Denies wheezing Physical Exam Vital Signs: Last Vital Signs Pulse 90 05/25/23 15:26 BP 102/62 05/25/23 15:26 Pulse Ox 100 05/25/23 15:26 Oxygen Delivery Method Room Air 05/25/23 15:26 BMI result Body Mass Index 30.6 Const General: no acute distress and alert Nutritional Appearance: not obese Orientation/consciousness: Other orientation findings ( oriented) HEENT Head: Yes atraumatic Eyes General: appearance normal, both eyes and all related structures Sclerae: sclerae normal EOM: EOMs intact bilaterally Neck Neck: Yes supple Lymphatic: no lymphadenopathy noted Resp Effort & Inspection: normal respiratory effort and no use of accessory muscles Auscultation: clear to auscultation bilaterally Cardio Rate: regular rate Rhythm: regular rhythm Heart sounds: no gallops, no murmurs and no rubs Skin General skin exam: other ( warm) Extrem General: No clubbing, No cyanosis and No edema Assessment & Plan Assessment & Plan (1) Asthma: Code(s): J45.909 - Unspecified asthma, uncomplicated Qualifiers: Asthma severity: unspecified severity Asthma persistence: unspecified Asthma complication type: uncomplicated Qualified Code(s): J45.909 - Unspecified asthma, uncomplicated Plan: Suboptimally controlled as patient was not able to tolerate powder inhaler. Will switch Breo to Symbicort. Continue albuterol MDI. (2) Environmental allergies: Code(s): Z91.09 - Other allergy status, other than to drugs and biological substances Plan: Results of immunologic studies reviewed. Patient does have significant allergic component. If no improvement on Symbicort, will consider initiation of immunologic therapy. Medications: New budesonide-formoterol 160-4.5 mcg/actuation (Symbicort) 2 puffs inhalation BID 10.2 grams 6RF 30 days Discontinued Breo Ellipta 200-25 mcg/dose (fluticasone furoate-vilanterol) Discontinued Reason: Doctor's Order 1 inh inhalation DAILY 30 days 1 ea 6RF NS Coding Level of Care Code Est Pt Level 4 (10112) Diagnoses Uncomplicated asthma, unspecified asthma severity, unspecified whether persistent J45.909 Asthma severity: unspecified severity Asthma persistence: unspecified Asthma complication type: uncomplicated Environmental allergies Z91.09
== END 2023-05-25 15:34 | disposition home or self-care (01) ==
PROVIDERS: PCP Internal Medicine; Visit Provider Internal Medicine Pulmonary Disease
DX: J45.909 Unspecified asthma, uncomplicated (principal); Z91.09 Other allergy status, other than to drugs and biological substances
CPT/HCPCS: 99214

== ENCOUNTER → 2023-05-25 15:22 | Outpatient (BNVA) | payer OTHER, SELFPAY | PROVIDERS: PCP Internal Medicine; Visit Provider Internal Medicine Pulmonary Disease ==

== ENCOUNTER 2023-06-19 09:21 | Outpatient (AMB) | payer OTHER, MEDICAID, SELFPAY ==
--- NOTE | 2023-06-19 09:22 | A.OFFPC_ITS ---
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 Taker Operator Required: No Allergies No Known Allergies Allergy (Verified 06/19/23 12:10) Medication List - Last Reconciled 06/19/23 by Maximo Luis MD albuterol sulfate 90 mcg/actuation 2 puffs inhalation Q4-6H PRN budesonide-formoterol 160-4.5 mcg/actuation (Symbicort) 2 puffs inhalation BID 30 days norethindrone ac-eth estradiol 1.5-30 mg-mcg (Microgestin) 1 tab PO DAILY 3 months Tobacco use date assessed: 06/19/23 Dental Screening Dental Screen Date: 06/19/23 Did you have a dental visit in the last 12 months?: Yes Did you have a dental problem in the last 6 months where you did not have access to dental care?: No Was dental information given to patient?: Patient has dentist HPI asthmarenuka/[phone] HPI Details Patient's follow up visit / consultation today is done over video conference (iPhone/iPad/[employer]) - this is a TELEHEALTH visit Patient's current medications have been reviewed and verified with patient and/or caregiver/proxy and have been updated accordingly in the medication list States that she currently feels okay and that her asthma has been much better controlled lately She was switched from Breo Ellipta over to Symbicort by Dr. Taylor a few weeks ago as Breo Ellipta seems to cause her to experience sore throat every time she uses it States that she's had no problems with Symbicort so far She denies any headaches or dizziness Denies any chest pains No nausea/vomiting, no abdominal pain and no change in bowel habits noted Would like to know how she did on her labs done a couple of months ago [facility] Medical History Overweight (BMI 25.0-29.9) Asthma Surgical History History of eye surgery History of wisdom tooth extraction Family History Mother Pre-diabetes Father History of hypertension Maternal Grandmother No problems noted. Maternal Grandfather No problems noted. Paternal Grandmother No problems noted. Paternal Grandfather No problems noted. Sister No problems noted. Social History Household Members: Significant Other and Children Both parents involved: Yes Housing: Apartment Alcohol intake: current Alcohol intake frequency: holidays/special occasions only Patient Tobacco Use Status: Never used Tobacco e-Cigarette/Vaping Use: Never Used Second Hand Smoke Exposure: No service: No Current occupational status: unemployed Sexual orientation: Straight/Heterosexual Gender identity: Female Cognitive needs: No Hearing needs: No Vision needs: No Female Reproductive History Menstrual Age of Menarche: 14 Questionnaire PHQ-9 Over the last 2 weeks, how often have you been bothered by any of the following problems? 1. Little interest or pleasure in doing things: not at all 2. Feeling down, depressed, or hopeless: not at all 3. Trouble falling or staying asleep, or sleeping too much: not at all 4. Feeling tired or having little energy: not at all 5. Poor appetite or overeating: not at all 6. Feeling bad about yourself - or that you are a failure or have let yourself or your family down: not at all 7. Trouble concentrating on things, such as reading the newspaper or watching television: not at all 8. Moving or speaking so slowly that other people could have noticed. Or the opposite - being so fidgety or restless that you have been moving around a lot more than usual: not at all 9. Thoughts that you would be better off or of hurting yourself in some way: not at all Total score: 0 Depression Screening Interpretation: Negative Depression Screening Done: Yes 14848 - PHQ-9 Billing: Yes Source: Developed by Drs. Randal Douglas, Carmen Khoury, Bay Santiago and colleagues, with an educational shiva from [employer]. Thrive Questionnaire Date Thrive assessed: 06/19/23 I am a: Patient What is your living situation today?: I have a steady place to live Within the past 12 months, did the food you bought not last and you didn't have the money to get more?: Never true Within the past 12 months, did you worry whether your food would run out before you got money to buy more?: Never true Do you have trouble paying for medicines?: No Do you have trouble getting transportation to medical appointments?: No Do you have trouble paying your heating and electricity bill?: No Do you have trouble taking care of your child, family member or friend?: No Do you have trouble with day-to-day activities such as bathing, preparing meals, shopping, managing finances, etc.?: No Are you currently unemployed and looking for a job?: No Are you interested in more education?: No Please select the resources that you would like help with: None Currently or been in a relationship where the following occur: no concerns reported THRIVE Score: 0 AUDIT C Alcohol Use Questionnaire (AUDIT-C) 1. How often do you have a drink containing alcohol?: Never 3. How often do you have six or more drinks on one occasion?: Never Total Score: 0 Score Reviewed/Action Taken: Yes JAIDEN-7 AMB Questionnaire JAIDEN-7 Date JAIDEN - 7 assessed: 06/19/23 Source: Developed by Drs. Randal Douglas, Carmen Khoury, Bay Santiago and colleagues, with an educational shiva from [employer]. Review of Systems Const Denies chills, Reports fatigue (mild), Denies fever(s) and Denies headache(s) ENT Denies dysphagia, Denies dizziness, Denies otalgia, Denies headache(s), Denies neck pain, Denies odynophagia and Denies sore throat Card Denies chest pain, Denies palpitations and Denies dyspnea Resp Denies chest congestion, Denies cough, Denies dyspnea and Denies wheezing GI Denies abdominal pain, Denies constipation, Denies dysphagia, Denies heartburn, Denies diarrhea, Denies nausea, Denies odynophagia and Denies vomiting Denies difficulty voiding, Denies nocturia, Denies dysuria and Denies urinary urgency Musc Denies neck pain Skin/Breast Denies rash Neuro Denies dizziness and Denies headache(s) Endo Reports fatigue (mild) and Denies palpitations Aller/Immun Denies wheezing Physical exam (Primary Care) Vital Signs: Physical examination is not performed as visit / consultation today is done over videoconference - Telehealth visit All physical findings indicated here, if present, are as per patient's and / or caregivers / proxy's report and visual inspection over videoconference, if appropriate or applicable Tobacco/Smoking Status: Tobacco use Status Tobacco use date assessed 06/19/23 06/19/23 09:24 Patient Tobacco Use Status Never used Tobacco 06/19/23 09:24 e-Cigarette/Vaping Use Never Used 06/19/23 09:24 Depression Screening Interpretation: Negative Thrive Assessment: Date of Thrive Assessment Date Thrive assessed 06/19/23 06/19/23 09:24 Currently or been in a relationship where the following occur: no concerns reported Telehealth Telehealth Location of provider rendering services: practice address Location of patient: address on file Patient Identification confirmed using: Name, : Yes Telehealth method: video (iphone / [employer]) Patient verbally consented to treatment: Yes Patient verbally consented to billing insurance company: Yes Patient informed of any privacy concerns related to visit: Yes Minutes spent on Phone/Video with Pt.: 22 Results Reviewed Results Reviewed: Laboratory Tests 03/14/23 03/14/23 04/18/23 09:11 09:11 11:40 WBC Hgb 13.0 Hct 40.7 Plt Count 284 Sodium 142 Potassium 3.9 Creatinine 0.78 Estimated GFR > 60 Random Glucose 80 Calcium 9.1 AST 15 ALT 13 TSH 0.93 04/18/23 11:40 WBC 6.6 Hgb Hct Plt Count Sodium Potassium Creatinine Estimated GFR Random Glucose Calcium AST ALT TSH Assessment and Plan Assessment & Plan (1) Asthma: Code(s): J45.909 - Unspecified asthma, uncomplicated Qualifiers: Asthma severity: unspecified severity Asthma persistence: unspecified Asthma complication type: uncomplicated Qualified Code(s): J45.909 - Unspecified asthma, uncomplicated Plan: Continue Symbicort 160-4.5 mcg 2 inhalations BID and Albuterol HFA 1 to 2 inhalations Q 6 hours PRN for now Follow up with pulmonary at [facility] as scheduled (2) Fatigue: Code(s): R53.83 - Other fatigue Qualifiers: Fatigue type: unspecified Qualified Code(s): R53.83 - Other fatigue Plan: Results of her labs done a couple of months ago reviewed and discussed with patient She is again advised that her recent labs are all within normal limits and there are no lab findings that can help explain her fatigue States that she has been feeling much better lately with improved control of her asthma (3) Overweight (BMI 25.0-29.9): Code(s): E66.3 - Overweight Plan: Reinforced diet/exercise as tolerated/lose weight Plan To return in 6 months for her annual physical examination Coding Level of Care Code Tele Est Pt Level 3 (35642) Diagnoses Uncomplicated asthma, unspecified asthma severity, unspecified whether persistent J45.909 Asthma severity: unspecified severity Asthma persistence: unspecified Asthma complication type: uncomplicated Fatigue, unspecified type R53.83 Fatigue type: unspecified Overweight (BMI 25.0-29.9) E66.3
== END 2023-06-19 10:47 | disposition home or self-care (01) ==
LOC: HO.HMGH 09:21
PROVIDERS: PCP Internal Medicine; Visit Provider Internal Medicine
DX: J45.909 Unspecified asthma, uncomplicated (principal); R53.83 Other fatigue; E66.3 Overweight
CPT/HCPCS: 99213

== ENCOUNTER 2023-07-07 09:04 | Outpatient (AMB) | payer OTHER, MEDICAID, SELFPAY ==
--- NOTE | 2023-07-07 09:09 | AM.OFFWIN_ITS ---
Intake Vital Signs 07/07/23 09:13 Height 5 ft 2 in Weight 165 lb BMI 30.2 BP 118/68 Blood Pressure Location Lt brachial Position Sitting Pulse 78 Pulse Source Pulse Oximeter Pulse Oximetry (%) 98 Oxygen Delivery Method Room Air Intake Visit Reasons: EP runny nose sinus/teeth pain Intake Note: Patient here for sinus infection that has been present for about 1 week and has gone to see urgent care previously but was not given anything. Patient Tobacco Use Status: Never used Tobacco Allergies No Known Allergies Allergy (Verified 07/07/23 09:13) Do you need a note to return to daycare/school/sports/work: No HPI HPI Comments History of Present Illness Details She presents to office with concern sinus infection She said over 1 week of symptoms + pain in sinces and teeth; pain level p ressure is 6/10 Tylenol with good relief Worse when she bends over r side worse in cheeks She said no ear pain She said minimal cough. No CP or SOB States she went to 2 days ago and told warm compress which she has tried without relief COVID was negative [facility] Medical History Overweight (BMI 25.0-29.9) Asthma Surgical History History of eye surgery History of wisdom tooth extraction Family History Mother Pre-diabetes Father History of hypertension Maternal Grandmother No problems noted. Maternal Grandfather No problems noted. Paternal Grandmother No problems noted. Paternal Grandfather No problems noted. Sister No problems noted. Social History Household Members: Significant Other and Children Both parents involved: Yes Housing: Apartment Alcohol intake: current Alcohol intake frequency: holidays/special occasions only Patient Tobacco Use Status: Never used Tobacco e-Cigarette/Vaping Use: Never Used Second Hand Smoke Exposure: No service: No Current occupational status: unemployed Sexual orientation: Straight/Heterosexual Gender identity: Female Cognitive needs: No Hearing needs: No Vision needs: No Female Reproductive History Menstrual Age of Menarche: 14 Review of Systems Const Denies chills, Denies fever(s) and Reports headache(s) Eyes Denies blurry vision ENT Denies otalgia, Reports headache(s), Reports mouth pain, Reports nasal congestion, Reports nasal discharge, Reports sinus pain, Reports sinus pressure, Denies sore throat, Denies throat swelling and Denies tongue swelling Card Denies chest pain and Denies dyspnea Resp Denies chest congestion, Reports cough and Denies dyspnea Musc Denies back pain and Denies myalgias Neuro Reports headache(s) Aller/Immun Denies throat swelling and Denies tongue swelling Physical Exam Vital Signs: Last Vital Signs Pulse 78 07/07/23 09:13 BP 118/68 07/07/23 09:13 Pulse Ox 98 07/07/23 09:13 Oxygen Delivery Method Room Air 07/07/23 09:13 BMI result Body Mass Index 30.2 General: Non-toxic, NAD. Speaking full sentences. Skin: Warm dry throughout Eye: EOMI HENT: Airway patent. Uvula midline. No pharyngeal erythema or edema. 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 + maxillary sinus tenderness bilaterally. + R frontal sinus tenderness as well. Bilateral canals clear. TM non-erythematous, non-bulging. No TM perforation or hemotympanum noted. Respiratory: CTA bilaterally. No wheezes, rales or rhonchi Cardiac: RRR. No murmur MSK: Full ROM extremities. Neurology: A/O. No aphasia or facial droop. Gait without abnormality Psych: Good mood and affect Assessment & Plan Assessment & Plan (1) Sinusitis: Code(s): J32.9 - Chronic sinusitis, unspecified Qualifiers: Sinusitis location: maxillary Chronicity: acute Recurrence: non- recurrent Qualified Code(s): J01.00 - Acute maxillary sinusitis, unspecified Plan: Patient seen and evaluated. Augmentin for sinuses Patient gave verbal understanding and had no additional questions or concerns at time of discharge All questions answered Medications: New amoxicillin-pot clavulanate 875-125 mg 1 tab PO BID 14 tabs 0RF Coding Level of Care Code Est Pt Level 3 (62929) Diagnoses Acute non-recurrent maxillary sinusitis J01.00 Sinusitis location: maxillary Chronicity: acute Recurrence: non-recurrent
[2023-07-07 09:13] VITALS: BP 118/68; PULSE 78; O2SAT 98; BMI 30.2
== END 2023-07-07 09:37 | disposition home or self-care (01) ==
PROVIDERS: PCP Internal Medicine; Visit Provider Physician Assistant
DX: J01.00 Acute maxillary sinusitis, unspecified (principal)
CPT/HCPCS: 99051; 99213

== ENCOUNTER 2023-08-14 08:51 | Outpatient (AMB) | payer OTHER, SELFPAY ==
--- NOTE | 2023-08-14 08:52 | MHC.OFFVIS ---
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 Doing well with no concerns. Doing well with her OCPs and wants to continue. She tries to eat healthy and stays active with exercise. Currently is sexually active same partner x 10. She denies vaginal itching and irritation. STI screening offered; she declines. Denies family history of breast, ovarian or colon cancer. She denies any contraindications to control such as: migraines with aura, history of DVT or pulmonary emboli, high blood pressure, liver disease, thrombolic disorders, Lupus, +HEIKE, breast cancer, or smoking. She feels safe at home. Last pap smear 2022, negative. [facility] Medical History Overweight (BMI 25.0-29.9) Asthma Surgical History History of eye surgery History of wisdom tooth extraction Family History Mother Pre-diabetes Father History of hypertension Maternal Grandmother No problems noted. Maternal Grandfather No problems noted. Paternal Grandmother No problems noted. Paternal Grandfather No problems noted. Sister No problems noted. Social History Household Members: Significant Other and Children Both parents involved: Yes Housing: Apartment Alcohol intake: current Alcohol intake frequency: holidays/special occasions only Patient Tobacco Use Status: Never used Tobacco e-Cigarette/Vaping Use: Never Used Second Hand Smoke Exposure: No service: No Current occupational status: unemployed Sexual orientation: Straight/Heterosexual Gender identity: Female Cognitive needs: No Hearing needs: No Vision needs: No Female Reproductive History Menstrual Age of Menarche: 14 Duration of menses: 3-5 days Date of last menstrual period: 08/06/23 control method: pills Total pregnancies: 2 Full term: 2 Number of Living Children: 2 Date of last pap smear: 07/12/22 (neg) Review of Systems Const All systems reviewed & are unremarkable except as noted in HPI and below Reports as per HPI Eyes Reports no additional complaints ENT Reports no additional complaints Card Reports no additional complaints Resp Reports no additional complaints GI Reports as per HPI and Reports no additional complaints Reports as per HPI Musc Reports no additional complaints Skin/Breast Reports as per HPI Neuro Reports no additional complaints Psych Reports no additional complaints Endo Reports no additional complaints Damian/Lymph Reports no additional complaints Aller/Immun Reports no additional complaints Physical Exam Vital Signs: Last Vital Signs BP 108/70 08/14/23 08:54 BMI result Body Mass Index 31.1 Const General: cooperative, healthy appearing, no acute distress, well developed and alert Orientation/consciousness: patient oriented x3 HEENT Head: Yes normal to inspection Eyes General: appearance normal, both eyes and all related structures Neck Neck: Yes normal visual inspection Thyroid: Thyroid normal Chest Chest palpation & inspection: normal inspection of the chest and other (no puckering, dimpling, peau de orange, retraction, discharge, masses) Breast/axilla inspection: normal inspection of the breasts Breast/axilla palpation: normal palpation of the breasts Resp Effort & Inspection: normal respiratory effort GI Inspection: Yes normal to inspection Palpation (GI): Soft to palpation Rectal Exam - Female: deferred General: Yes bladder normal to palpation External Female Exam: normal external appearance and normal appearance of the urethra Speculum Exam - Vagina: normal appearance of the vagina, normal palpation and normal vaginal discharge Speculum Exam - Cervix: normal appearance of the cervix and normal palpation Bimanual exam- vagina & uterus: normal bimanual exam, normal palpation, uterine size normal, bladder normal to palpation, normal palpation and non-tender Bimanual Exam- Adnexa, other: no masses Skin General skin exam: no rashes or lesions noted Rashes: no rashes Neuro General: patient oriented x3 Cognition (Neuro): normal cognition Extrem General: Yes normal to inspection Psych Attitude: cooperative Thought process: Normal thought process present Assessment & Plan Assessment & Plan (1) Encounter for well woman exam with routine gynecological exam: Code(s): Z01.419 - Encounter for gynecological examination (general) (routine) without abnormal findings (2) Surveillance of contraceptive pill: Code(s): Z30.41 - Encounter for surveillance of contraceptive pills Plan Discussed: Current recommendations for pap smears per ASCCP guidelines. Breast awareness and periodic breast exams. Maintain a healthy lifestyle including a well balanced diet and routine exercise. control hormone use warnings: go to ER if and loss of vision, blindness, severe headache, chest pain or difficulty breathing, severe abdominal pain, or any pain or swelling in an extremity. Patient verbalizes understanding and agrees to the plan of care. She was given opportunity to ask questions and all questions were answered to the best of my ability. RTO in one year for annual nurse gynecology examination. This note is constructed using voice recognition software. While every effort has been made to ensure accuracy, sharepoint trainer errors may have been included. Medications: Refilled norethindrone ac-eth estradiol 1.5-30 mg-mcg (Microgestin) 1 tab PO DAILY 90 tabs 4RF 3 months Coding Level of Care Code Est Pt Prev Care 18-39y(99822) Diagnoses Encounter for well woman exam with routine gynecological exam Z01.419 Surveillance of contraceptive pill Z30.41
[2023-08-14 08:54] VITALS: BP 108/70; BMI 31.1
== END 2023-08-14 09:22 | disposition home or self-care (01) ==
PROVIDERS: PCP Internal Medicine; Visit Provider Advanced Practice Midwife
DX: Z01.419 Encounter for gynecological examination (general) (routine) without abnormal findings (principal); Z30.41 Encounter for surveillance of contraceptive pills
CPT/HCPCS: 99395

== ENCOUNTER → 2023-08-14 08:51 | Outpatient (BNVA) | payer OTHER, SELFPAY | PROVIDERS: Visit Provider Advanced Practice Midwife ==

== ENCOUNTER 2024-02-29 12:41 | Outpatient (AMB) | payer OTHER, SELFPAY ==
--- NOTE | 2024-02-29 12:50 | MHC.PC.OV ---
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 Accompanied by: Self / Same As Patient Allergies No Known Allergies Allergy (Verified 02/29/24 13:26) Medication List - Last Reconciled 02/29/24 by Maximo Luis MD albuterol sulfate 90 mcg/actuation 2 puffs inhalation Q4-6H PRN budesonide-formoterol 160-4.5 mcg/actuation (Symbicort) 2 puffs inhalation BID 30 days norethindrone ac-eth estradiol 1.5-30 mg-mcg (Microgestin) 1 tab PO DAILY 3 months Tobacco use date assessed: 02/29/24 Dental Screening Dental Screen Date: 02/29/24 HPI annual exam HPI Details Patient comes in today for her annual physical examination States that she has been struggling with anxiety for a while now States that she did not want to admit to herself before that she has issues with anxiety but feels that this has been slowly getting worse lately and she now would like to try getting this addressed before it gets out of hand - is currently requesting for a referral for therapy and counseling as she would like very much to avoid having to take any medications for her anxiety Adds that she does have a Hx of ADD when she was growing up but feels that she is doing okay now and does not want to take any medication for her ADD - feels that she does not need it She denies any headaches or dizziness Denies any chest pains, no increased SOB - states that her asthma has been stable lately She used to see Dr. Taylor regularly for her asthma but has not seen him in a while due to some changes in her insurance and she had to cancel her last appointment with him several months ago No nausea/vomiting, no abdominal pain No change in bowel habits noted She denies any acute urinary symptoms Needs her Symbicort inhaler Rx refilled States that she is up-to-date with her annual gynecology exam and pap smear and has never had an abnormal pap smear in the past [facility] Medical History (Updated 02/29/24 @ 13:48 by Maximo Luis MD) Obesity (BMI 30-39.9) Attention deficit disorder (ADD) Generalized anxiety disorder Overweight (BMI 25.0-29.9) Asthma Surgical History History of eye surgery History of wisdom tooth extraction Family History Mother Pre-diabetes Father History of hypertension Maternal Grandmother No problems noted. Maternal Grandfather No problems noted. Paternal Grandmother No problems noted. Paternal Grandfather No problems noted. Sister No problems noted. Social History Household Members: Significant Other and Children Both parents involved: Yes Housing: Apartment Alcohol intake: current Alcohol intake frequency: holidays/special occasions only Patient Tobacco Use Status: Never used Tobacco e-Cigarette/Vaping Use: Never Used Second Hand Smoke Exposure: No service: No Current occupational status: unemployed Sexual orientation: Straight/Heterosexual Gender identity: Female Cognitive needs: No Hearing needs: No Vision needs: No Female Reproductive History Menstrual Age of Menarche: 14 Questionnaire PHQ-9 Over the last 2 weeks, how often have you been bothered by any of the following problems? 1. Little interest or pleasure in doing things: not at all 2. Feeling down, depressed, or hopeless: not at all 3. Trouble falling or staying asleep, or sleeping too much: not at all 4. Feeling tired or having little energy: not at all 5. Poor appetite or overeating: not at all 6. Feeling bad about yourself - or that you are a failure or have let yourself or your family down: not at all 7. Trouble concentrating on things, such as reading the newspaper or watching television: not at all 8. Moving or speaking so slowly that other people could have noticed. Or the opposite - being so fidgety or restless that you have been moving around a lot more than usual: not at all 9. Thoughts that you would be better off or of hurting yourself in some way: not at all Total score: 0 Depression Screening Interpretation: Negative Depression Screening Done: Yes 56015 - PHQ-9 Billing: Yes Source: Developed by Drs. Randal Douglas, Carmen Khoury, Bay Santiago and colleagues, with an educational shiva from [employer]. Thrive Questionnaire Date Thrive assessed: 02/29/24 I am a: Patient What is your living situation today?: I have a steady place to live Within the past 12 months, did the food you bought not last and you didn't have the money to get more?: Never true Within the past 12 months, did you worry whether your food would run out before you got money to buy more?: Never true Do you have trouble paying for medicines?: No Do you have trouble getting transportation to medical appointments?: No Do you have trouble paying your heating and electricity bill?: No Do you have trouble taking care of your child, family member or friend?: No Do you have trouble with day-to-day activities such as bathing, preparing meals, shopping, managing finances, etc.?: No Are you currently unemployed and looking for a job?: No Are you interested in more education?: No Please select the resources that you would like help with: None Currently or been in a relationship where the following occur: No concerns reported THRIVE Score: 0 AUDIT C Alcohol Use Questionnaire (AUDIT-C) 1. How often do you have a drink containing alcohol?: Never 3. How often do you have six or more drinks on one occasion?: Never Total Score: 0 Score Reviewed/Action Taken: Yes JAIDEN-7 AMB Questionnaire JAIDEN-7 Date JAIDEN - 7 assessed: 02/29/24 Feeling nervous, anxious, or on edge: 1 = Several days Not being able to stop or control worryin = Not at all Worrying too much about different things: 1 = Several days Trouble relaxin = Not at all Being so restless that it is hard to sit still: 0 = Not at all Becoming easily annoyed or irritable: 1 = Several days Feeling afraid as if something awful might happen: 1 = Several days Total JAIDEN-7 score (0-4 normal; 5-9 mild; 10-14 moderate; 15-21 severe): 4 Source: Developed by Drs. Randal Douglas, Carmen Khoury, Bay Santiago and colleagues, with an educational shiva from [employer]. Review of Systems Const Denies chills, Denies difficulty sleeping, Denies fatigue, Denies fever(s), Denies headache(s), Denies malaise and Denies weakness Eyes Denies blurry vision, Denies change in vision, Denies irritation and Denies itchy eyes ENT Denies dysphagia, Denies dizziness, Denies otalgia, Denies headache(s), Denies nasal congestion, Denies neck pain, Denies odynophagia and Denies sore throat Card Denies chest pain, Denies rapid heart rate, Denies irregular heart rhythm, Denies palpitations and Denies dyspnea Resp Denies chest congestion, Denies cough, Denies dyspnea and Denies wheezing GI Denies abdominal pain, Denies bloating, Denies constipation, Denies dysphagia, Denies heartburn, Denies diarrhea, Denies nausea, Denies odynophagia and Denies vomiting Denies hematuria, Denies urinary frequency, Denies dysuria and Denies urinary urgency Musc Reports back pain (on and off - thinks this is mostly due to poor posture when she is at work), Denies arthralgias, Denies joint swelling, Denies muscle weakness and Denies neck pain Skin/Breast Denies change in pigmentation, Denies lesions, Denies rash and Denies unusual bruising Neuro Denies dizziness, Denies headache(s), Denies paresthesias and Denies weakness Psych Reports anxiety (increasing) Endo Denies fatigue and Denies palpitations Aller/Immun Denies itchy eyes and Denies wheezing Physical exam (Primary Care) Vital Signs: Last Vital Signs Pulse 83 02/29/24 12:51 BP 100/70 02/29/24 12:51 Pulse Ox 98 02/29/24 12:51 Oxygen Delivery Method Room Air 02/29/24 12:51 BMI result Body Mass Index 33.2 Tobacco/Smoking Status: Tobacco use Status Tobacco use date assessed 02/29/24 02/29/24 12:56 Patient Tobacco Use Status Never used Tobacco 02/29/24 12:56 e-Cigarette/Vaping Use Never Used 02/29/24 12:56 PHQ-9: PHQ-9 Score PHQ-9: Total score 0 02/29/24 12:58 Depression Screening Interpretation: Negative Thrive Assessment: Date of Thrive Assessment Date Thrive assessed 02/29/24 02/29/24 12:56 Currently or been in a relationship where the following occur: No concerns reported Const General: no acute distress, alert and awake Orientation/consciousness: patient oriented x3 HENMT Head: Yes normocephalic and Yes atraumatic Ears: external ears normal, TM's normal bilaterally and EAC's normal General nose exam: No nasal discharge present Face and sinus: Yes normal facial exam and Yes sinuses nontender Teeth and gingiva: dentition normal Throat: Yes posterior oropharynx normal and Yes tonsils normal (no TP congestion) Eyes Eyelids: Yes eyelids normal Conjunctivae: conjunctivae normal Pupils: Equal, round and reactive pupils present EOM: EOMs intact bilaterally Neck Neck: Yes no lymphadenopathy and Yes supple Thyroid: Thyroid normal Resp Auscultation: clear to auscultation bilaterally, no rales and no wheezes Cardio Rate: regular rate Rhythm: regular rhythm Heart sounds: no murmurs GI Palpation (GI): Soft to palpation, nontender and No hepatosplenomegaly present Auscultation: normal bowel sounds General: Yes no CVA tenderness Back/Spine/Pelvis Back: no CVA tenderness Thoracic/Lumbar Spine: thoracic and lumbar spine normal to inspection Skin Lesions: no lesions Rashes: no rashes Neuro General: patient oriented x3, moves all extremities, no focal motor deficits and CN's II-XI intact bilaterally Cranial nerves: Yes Equal, round and reactive pupils present Cognition (Neuro): normal cognition Gait exam (Neuro): Normal gait present Extrem General: Yes no clubbing, cyanosis or edema Office Procedures Flu Questionnaire Does the patient have a severe egg allergy?: No Immunizations Fluarix Triv [id number] (PF) 45 mcg (15 mcg x 3)/0.5 mL IM syringe Performing Provider: Maximo Luis MD [facility] [place] [facility] Documented (not given) by: JOCELYNE Alcaraz on 02/29/24 12:58 Reason Not Given: Patient Refused Coding Level of Care Code Est Pt Prev Care 18-39y(12723) Diagnoses Annual physical exam Z00.00 Uncomplicated asthma, unspecified asthma severity, unspecified whether persistent J45.909 Asthma severity: unspecified severity Asthma persistence: unspecified Asthma complication type: uncomplicated Generalized anxiety disorder F41.1 Obesity (BMI 30-39.9) E66.9 Assessment & Plan Assessment & Plan (1) Annual physical exam: Code(s): Z00.00 - Encounter for general adult medical examination without abnormal findings Category: Medical Plan: Check labs She is up-to-date with her annual gynecology exam and pap smear (2) Asthma: Code(s): J45.909 - Unspecified asthma, uncomplicated Category: Medical Qualifiers: Asthma severity: unspecified severity Asthma persistence: unspecified Asthma complication type: uncomplicated Qualified Code(s): J45.909 - Unspecified asthma, uncomplicated Plan: Controlled/stable Continue Symbicort 160-4.5 mcg 2 inhalations BID and Albuterol HFA 1 to 2 inhalations Q 6 hours PRN Follow up with pulmonary as scheduled (3) Generalized anxiety disorder: Code(s): F41.1 - Generalized anxiety disorder Category: Medical Plan: Per request, will refer her for therapy/counseling Patient declined offer to start her on some Rx to help with her anxiety (4) Obesity (BMI 30-39.9): Code(s): E66.9 - Obesity, unspecified Category: Medical Plan: Reinforced diet/exercise as tolerated/lose weight Plan To return in 1 year for her next annual physical examination Orders: Orders Influenza [id number] Immunization Today Z23 - Encounter for immunization Comprehensive Met. Panel Today Z00.00 - Encounter for general adult medical examination without abnormal findings TSH reflex Free T4 Today E78.00 - Pure hypercholesterolemia, unspecified, Z00.00 - Encounter for general adult medical examination without abnormal findings Vitamin D 25-OH Total Today E55.9 - Vitamin D deficiency, unspecified, Z00.00 - Encounter for general adult medical examination without abnormal findings Complete Blood Count Auto Diff Today D64.9 - Anemia, unspecified, Z00.00 - Encounter for general adult medical examination without abnormal findings UA CC w/rflx Micro + Cult Today R30.0 - Dysuria, Z00.00 - Encounter for general adult medical examination without abnormal findings Cholesterol Today Z00.00 - Encounter for general adult medical examination without abnormal findings Referrals Psychiatry Referral F41.1 - Generalized anxiety disorder Medications: Refilled budesonide-formoterol 160-4.5 mcg/actuation (Symbicort) 2 puffs inhalation BID 30 days 10.2 grams 6RF
[2024-02-29 12:51] VITALS: BP 100/70; PULSE 83; O2SAT 98; BMI 33.2
== END 2024-02-29 13:38 | disposition home or self-care (01) ==
PROVIDERS: PCP Internal Medicine; Visit Provider Internal Medicine
DX: Z00.00 Encounter for general adult medical examination without abnormal findings (principal); E66.811 Obesity, class 1; Z68.33 Body mass index [BMI] 33.0-33.9, adult; J45.909 Unspecified asthma, uncomplicated; F41.1 Generalized anxiety disorder

== ENCOUNTER → 2024-02-29 12:41 | Outpatient (BNVA) | payer OTHER, SELFPAY | PROVIDERS: PCP Internal Medicine; Visit Provider Internal Medicine | DX: Z00.00 Encounter for general adult medical examination without abnormal findings (principal); J45.909 Unspecified asthma, uncomplicated; F41.1 Generalized anxiety disorder; E66.9 Obesity, unspecified; Z68.33 Body mass index [BMI] 33.0-33.9, adult; Z28.21 Immunization not carried out because of patient refusal | CPT/HCPCS: 90471; 96127; 99395 ==

== ENCOUNTER 2024-03-31 09:41 | Outpatient (AMB) | payer OTHER, SELFPAY ==
--- NOTE | 2024-03-31 09:46 | MHC.OFFVIS ---
Vital Signs 03/31/24 09:49 BP 112/80 Intake Visit Reasons: Bleeding with control pills Allergies No Known Allergies Allergy (Verified 03/31/24 09:47) HPI Comments Details: Presenting complaining of intermenstrual spotting for last 4 months. The patient has been on control pills for the last 3 years, no additional complaints. Last Pap smear in 08/03 was negative [facility] Medical History Obesity (BMI 30-39.9) Attention deficit disorder (ADD) Generalized anxiety disorder Overweight (BMI 25.0-29.9) Asthma Surgical History History of eye surgery History of wisdom tooth extraction Family History Mother Pre-diabetes Father History of hypertension Maternal Grandmother No problems noted. Maternal Grandfather No problems noted. Paternal Grandmother No problems noted. Paternal Grandfather No problems noted. Sister No problems noted. Social History Household Members: Significant Other and Children Both parents involved: Yes Housing: Apartment Alcohol intake: current Alcohol intake frequency: holidays/special occasions only Patient Tobacco Use Status: Never used Tobacco e-Cigarette/Vaping Use: Never Used Second Hand Smoke Exposure: No service: No Current occupational status: unemployed Sexual orientation: Straight/Heterosexual Gender identity: Female Cognitive needs: No Hearing needs: No Vision needs: No Female Reproductive History Menstrual Age of Menarche: 14 Duration of menses: 3-5 days Date of last menstrual period: 03/10/24 control method: pills Total pregnancies: 2 Full term: 2 Review of Systems Const All systems reviewed & are unremarkable except as noted in HPI and below Physical Exam Vital Signs: Last Vital Signs BP 112/80 03/31/24 09:49 General: Yes no CVA tenderness External Female Exam: normal external appearance and normal appearance of the urethra Speculum Exam - Vagina: normal appearance of the vagina, normal palpation, no lesions and no masses Speculum Exam - Cervix: normal appearance of the cervix, normal palpation, no lesions, no masses and nontender Bimanual exam- vagina & uterus: normal bimanual exam, normal palpation, uterine size normal, normal palpation, uterine shape normal, No Cervical tenderness present and non-tender Bimanual Exam- Adnexa, other: normal adnexae Back/Spine/Pelvis Back: no CVA tenderness Assessment & Plan Assessment & Plan (1) Abnormal uterine bleeding (AUB): Code(s): N93.9 - Abnormal uterine and vaginal bleeding, unspecified Category: Medical Plan: GC and chlamydia taken, CBC, TSH, prolactin, HCG, and pelvic ultrasound ordered. Discussed with the patient the different causes of abnormal bleeding including thyroid disorders, uterine and ovarian pathology, endometrial hyperplasia, carcinoma and other potential causes. Discussed with the patient the work up including CBC (to r/o anemia), TSH, prolactin, pelvic Ultrasound. All questions answered and the patient verbalized understanding. Instructed the patient to schedule an appointment for follow-up in 2 weeks. Orders: Orders US pelvic and transvaginal Today N93.9 - Abnormal uterine and vaginal bleeding, unspecified TSH reflex Free T4 Today N93.9 - Abnormal uterine and vaginal bleeding, unspecified Prolactin Today N93.9 - Abnormal uterine and vaginal bleeding, unspecified HCG Quantitative Today N93.9 - Abnormal uterine and vaginal bleeding, unspecified Complete Blood Count no Diff Today N93.9 - Abnormal uterine and vaginal bleeding, unspecified Coding Level of Care Code Est Pt Level 3 (84943) Diagnoses Abnormal uterine bleeding (AUB) N93.9
[2024-03-31 09:49] VITALS: BP 112/80
== END 2024-03-31 10:08 | disposition home or self-care (01) ==
LOC: HO.HWS 09:41
PROVIDERS: PCP Internal Medicine; Visit Provider Obstetrics & Gynecology
DX: N93.9 Abnormal uterine and vaginal bleeding, unspecified (principal)
CPT/HCPCS: 99213

== ENCOUNTER 2024-03-31 09:41 | Outpatient (REF) | payer OTHER, SELFPAY ==
[2024-03-31 11:38] LABS: Alanine Aminotransferase 10 U/L (0-31); Alkaline Phosphatase 59 U/L (39-117); Anion Gap 8 (12-20); Aspartate Amino Transferase 16 U/L (5-31); Bilirubin Total 0.3 mg/dL (0.0-1.0); Blood Urea Nitrogen 9 mg/dL (9-16); Carbon Dioxide 26 mmol/L (22-29); Chloride 109 mmol/L (96-108); Cholesterol 153 mg/dL (<200); Estimated Glomerular Filt Rate > 60; Glucose Random 97 mg/dL (60-115); Potassium 4.1 mmol/L (3.3-5.1); Sodium 139 mmol/L (135-145); Total Protein 7.2 g/dL (6.5-8.0)
[2024-03-31 11:55] LABS: TSH reflex Free T4 1.43 uIU/mL (0.32-4.0); Vitamin D 25-OH Total 21.2 ng/mL (>30)
[2024-03-31 16:12] LABS: CT PCR NOT DETECTED (Not Detect.); NG PCR NOT DETECTED (Not Detect.)
== END 2024-03-31 09:42 | disposition home or self-care (01) ==
LOC: HO.LAB 09:41
PROVIDERS: PCP Internal Medicine; Visit Provider Obstetrics & Gynecology
DX: N93.9 Abnormal uterine and vaginal bleeding, unspecified (principal); Z00.00 Encounter for general adult medical examination without abnormal findings; D64.9 Anemia, unspecified; E78.00 Pure hypercholesterolemia, unspecified; E55.9 Vitamin D deficiency, unspecified
CPT/HCPCS: 36415; 80053; 82306; 82465; 84443; 87491; 87591; 99212

== ENCOUNTER 2024-03-31 10:15 | Outpatient (REF) | payer OTHER, SELFPAY ==
[2024-03-31 10:59] LABS: Hemoglobin 11.4 g/dl (12.0-16.0); Mean Corpuscular HGB Conc 32.6 g/dl (31.0-35.0); Mean Corpuscular Hemoglobin 26.3 pg (27.0-33.0); Mean Corpuscular Volume 80.6 fL (80.0-98.0); Mean Platelet Volume 9.2 fL (9.4-12.3); Platelet Count 292 X10*3/uL (160-400); Red Blood Count 4.34 X10*6/uL (4.20-5.50); Red Cell Distribution Width 14.1 % (11.0-16.0); White Blood Count 6.8 X10*3/uL (4.8-10.8)
[2024-03-31 11:36] LABS: HCG Quantitative < 2 mIU/mL
[2024-04-01 08:58] LABS: Prolactin 6.4 ng/mL
== END 2024-03-31 10:16 | disposition home or self-care (01) ==
LOC: HO.LNP 10:15
PROVIDERS: Visit Provider Obstetrics & Gynecology
DX: Z00.00 Encounter for general adult medical examination without abnormal findings (principal); D64.9 Anemia, unspecified; N93.9 Abnormal uterine and vaginal bleeding, unspecified
CPT/HCPCS: 84146; 84702; 85027

== ENCOUNTER 2024-04-21 10:40 | Outpatient (REF) | payer OTHER, SELFPAY | END 2024-04-21 10:41 | disposition home or self-care (01) | LOC: HO.US 10:40 | PROVIDERS: PCP Internal Medicine; Visit Provider Obstetrics & Gynecology | DX: N93.9 Abnormal uterine and vaginal bleeding, unspecified (principal) | CPT/HCPCS: 76830; 76856 ==

== ENCOUNTER 2024-04-29 00:46 | Emergency (ER) | payer OTHER, SELFPAY ==
--- NOTE | ~2024-04-29 | XR_ITS ---
EXAMINATION: XR CHEST CLINICAL INFORMATION: cough COMPARISON: None available. TECHNIQUE: Frontal view of the chest was obtained. FINDINGS: No significant abnormality is noted involving the heart, lungs, mediastinum, bony thorax or soft tissues. XR/XR chest 1V IMPRESSION: Unremarkable examination. Electronically signed by: Carlos Larose MD 04/29/2024 01:55 [place] [facility] [place]
--- NOTE | 2024-04-29 00:48 | ECG_ITS ---
Test Reason : CP Blood Pressure : / mmHG Vent. Rate : 093 BPM Atrial Rate : 093 BPM P-R Int : 138 ms QRS Dur : 072 ms QT Int : 348 ms P-R-T Axes : 063 036 022 degrees QTc Int : 432 ms Normal sinus rhythm with sinus arrhythmia Normal ECG When compared to the previous EKG of feb 13 2014, rate is slower Referred By: Generic ED Physician Electronically Signed By:DOROTHY KEARNS
[2024-04-29 01:04] VITALS: BP 115/56; PULSE 86; RESP 16; TEMP 37; O2SAT 100; BMI 33.3
[2024-04-29 01:04] LABS: MANUAL DIFF FLAG NO
[2024-04-29 01:17] LABS: Basophils Absolute Auto 0.1 X10*3/uL (0.0-0.2); Basophils Percent Auto 0.6 % (0-2); Eosinophils Absolute Auto 0.3 X10*3/uL (0.0-0.4); Eosinophils Percent Auto 2.6 % (0-4); Hematocrit 36.1 % (37.0-47.0); Hemoglobin 11.8 g/dl (12.0-16.0); Imm Gran Abs Auto 0.02 X10*3/uL (0.00-0.03); Imm Gran Pct Auto 0.2 % (0.0-0.4); Lymphocytes Absolute Auto 3.1 X10*3/uL (1.2-4.9); Lymphocytes Percent Auto 31.1 % (20-40); Mean Corpuscular HGB Conc 32.7 g/dl (31.0-35.0); Mean Corpuscular Hemoglobin 25.9 pg (27.0-33.0); Mean Corpuscular Volume 79.3 fL (80.0-98.0); Mean Platelet Volume 8.9 fL (9.4-12.3); Monocytes Absolute Auto 0.9 X10*3/uL (0.1-1.2); Monocytes Percent Auto 8.9 % (2-11); Neutrophils Absolute Auto 5.6 x10*3/uL (2.0-8.3); Neutrophils Percent Auto 56.6 % (45-73); Platelet Count 358 X10*3/uL (160-400); Red Blood Count 4.55 X10*6/uL (4.20-5.50); Red Cell Distribution Width 13.4 % (11.0-16.0); White Blood Count 9.8 X10*3/uL (4.8-10.8)
[2024-04-29 01:18] LABS: Anion Gap 12 (12-20); Blood Urea Nitrogen 10 mg/dL (9-16); Calcium 9.1 mg/dL (8.4-10.2); Carbon Dioxide 24 mmol/L (22-29); Chloride 106 mmol/L (96-108); Creatinine Clr Calc Pharmacy 113.1; Estimated Glomerular Filt Rate > 60; Glucose Random 101 mg/dL (60-115); Potassium 3.8 mmol/L (3.3-5.1); Sodium 138 mmol/L (135-145)
[2024-04-29 01:26] LABS: Troponin-I High Sensitivity < 2.7 ng/L (<3.5-17.0)
--- NOTE | 2024-04-29 02:09 | ED_ITS ---
HPI - General Adult General Chief complaint: Upper Respiratory Symptoms Stated complaint: Chest Pain, asthmatic, took albuterol Time Seen by Provider: 04/29/24 02:09 History of Present Illness ED Provider: Rosy BANERJEE narrative: The patient is a 28-year-old female with a history of asthma. She says that over the last 2 weeks she has had waxing and waning symptoms. She says that she 1st got sick about 2 weeks ago and was feeling like she had a cold for a few days. She then got better last 3 or 4 days feels like she has gotten sick a 2nd time. She she is congested coughing a lot. She does not know if she has had a fever. She feels she has been wheezing. She has run out of her usual asthma medications. Related Data Previous Rx's ?Medication ?Instructions ?Recorded albuterol sulfate 90 mcg/actuation 2 puff inhalation Q4-6H PRN 03/12/23 aerosol inhaler shortness of breath or wheezing #6.7 grams norethindrone acetate 1.5 1 tab PO DAILY 3 months #90 tabs 08/14/23 mg-ethinyl estradiol 30 mcg tablet (Microgestin) budesonide-formoterol HFA 160 2 puff inhalation BID 30 days 02/29/24 mcg-4.5 mcg/actuation aerosol #10.2 grams inhaler (Symbicort) azithromycin 250 mg tablet 250 mg PO DAILY 4 days #4 tabs 04/29/24 budesonide-formoterol HFA 80 1 puff inhalation BID #10.2 grams 04/29/24 mcg-4.5 mcg/actuation aerosol inhaler prednisone 20 mg tablet 20 mg PO DAILY #12 tabs 04/29/24 Allergies Allergy/AdvReac Type Severity Reaction Status Date / Time No Known Allergies Allergy Verified 04/29/24 01:07 Review of Systems 2 Review of Systems: Yes all other systems are reviewed and are negative PMFSH Past Medical History Medical History Obesity (BMI 30-39.9) Attention deficit disorder (ADD) Generalized anxiety disorder Overweight (BMI 25.0-29.9) Asthma Surgical History History of eye surgery History of wisdom tooth extraction Family History Family History Mother Pre-diabetes Father History of hypertension Maternal Grandmother No problems noted. Maternal Grandfather No problems noted. Paternal Grandmother No problems noted. Paternal Grandfather No problems noted. Sister No problems noted. Social History Social History Household Members: Significant Other and Children Housing: Apartment Alcohol intake: current Alcohol intake frequency: a few times a month Alcohol type: wine Patient Tobacco Use Status: Never used Tobacco Smoked in Last 30 Days: No e-Cigarette/Vaping Use: Never Used Second Hand Smoke Exposure: No Use of substances other than those prescribed or required for medical reasons: No Advance Directives: No Advance Directives Information Provided: Yes Do you have a plan to hurt others: No Plan Patient : No service: No Current occupational status: unemployed Sexual orientation: Straight/Heterosexual Gender identity: Female Cognitive needs: No Hearing needs: No Vision needs: No Physical Exam ED Vital Signs: Vital Signs - 24 hr 04/29/24 01:04 04/29/24 02:31 04/29/24 02:36 Temperature 98.6 F 98 F Pulse Rate 86 86 80 Respiratory Rate 16 18 18 Blood Pressure 115/56 L 120/70 Pulse Oximetry 100 100 Oxygen Delivery Method Room Air Room Air BMI result Body Mass Index 33.3 Const Other: The patient is awake, alert, pleasant, cooperative. She does not appear obviously acutely ill. [facility] Head: Yes normal to inspection Face and sinus: Yes normal facial exam Mouth: Normal oral and palatal mucosa present and moist mucous membranes Eyes General: appearance normal, both eyes and all related structures Neck Neck: Yes full ROM Resp Other: No increased work of breathing. There seems to be marked diminished air entry however. No appreciable wheezes. Cardio Rate: regular rate Rhythm: regular rhythm Heart sounds: S1 normal heart sound present and S2 normal heart sound present Skin Other: Skin is dry and unremarkable Neuro Other: The patient is awake and alert with a normal mental status. Cranial nerves are grossly intact. She moves her extremities normally and appropriately. Extrem Other: No peripheral edema, no calf swelling or tenderness, no asymmetry Medications Administered Discontinued Medications Generic Name Dose Route Start Last Admin Trade Name Freq PRN Reason Stop Dose Admin Albuterol/Ipratropium 3 ml 04/29/24 02:18 04/29/24 02:36 Albuterol/Iprat 2.5/0.5mg 3 Ml Ampul.Neb INHALE 04/29/24 02:19 3 ml ONCE ONE Administration Azithromycin 500 mg 04/29/24 02:57 04/29/24 03:03 Azithromycin 500 Mg Tablet PO 04/29/24 02:58 500 mg ONCE ONE Administration Prednisone 60 mg 04/29/24 02:18 04/29/24 02:50 Prednisone 20 Mg Tablet PO 04/29/24 02:19 60 mg ONCE ONE Administration Medical Decision Making Medical Decision Making [facility] Narrative: The patient presents with complaints of symptoms of a respiratory infection including cough and congestion. She also says that she feels short of breath in a manner consistent with her asthma. On exam I really do not hear wheezing but she does seem to have diminished air entry bilaterally. Chest x-ray is negative. Labs are unremarkable. Vital signs are unremarkable. The patient seems to have an asthma exacerbation secondary to a what is probably a viral upper respiratory infection. She is negative for COVID, the flu, and RSV. Started on a course of prednisone, azithromycin, and will also be prescribed budesonide formoterol. 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 Lab Data 04/29/24 00:59 04/29/24 00:59 Labs: Lab Results 04/29/24 04/29/24 Range/Units 00:59 01:38 WBC 9.8 (4.8-10.8) X10*3/uL RBC 4.55 (4.20-5.50) X10*6/uL Hgb 11.8 L (12.0-16.0) g/dl Hct 36.1 L (37.0-47.0) % MCV 79.3 L (80.0-98.0) fL MCH 25.9 L (27.0-33.0) pg MCHC 32.7 (31.0-35.0) g/dl RDW 13.4 (11.0-16.0) % Plt Count 358 (160-400) X10*3/uL MPV 8.9 L (9.4-12.3) fL Immature Gran % (Auto) 0.2 (0.0-0.4) % Neut % (Auto) 56.6 (45-73) % Lymph % (Auto) 31.1 (20-40) % Benton % (Auto) 8.9 (2-11) % Eos % (Auto) 2.6 (0-4) % Baso % (Auto) 0.6 (0-2) % Lymph # (Auto) 3.1 (1.2-4.9) X10*3/uL Benton # (Auto) 0.9 (0.1-1.2) X10*3/uL Eos # (Auto) 0.3 (0.0-0.4) X10*3/uL Baso # (Auto) 0.1 (0.0-0.2) X10*3/uL Abs Immat Gran (auto) 0.02 (0.00-0.03) X10*3/uL Absolute Neuts (auto) 5.6 (2.0-8.3) x10*3/uL Absolute Nucleated RBC 0.000 (0.0-0.012) X10*3/uL Nucleated RBC % (auto) 0.0 (0.0-0.2) /100WBC Sodium 138 (135-145) mmol/L Potassium 3.8 (3.3-5.1) mmol/L Chloride 106 (96-108) mmol/L Carbon Dioxide 24 (22-29) mmol/L Anion Gap 12 (12-20) BUN 10 (9-16) mg/dL Creatinine 0.75 (0.5-1.4) mg/dL Estim Creat Clear Calc 113.1 Estimated GFR > 60 Random Glucose 101 (60-115) mg/dL Calcium 9.1 (8.4-10.2) mg/dL Troponin I High Sens < 2.7 (<3.5-17.0) ng/L Beta HCG, Quant < 2 mIU/mL Influenza Type A (PCR) NEGATIVE (Negative) Influenza Type B (PCR) NEGATIVE (Negative) RSV RNA Qual (PCR) NEGATIVE (Negative) SARS-CoV-2 RNA (RT-PCR) NEGATIVE (Negative) Discharge Plan Discharge Clinical Impression: Acute asthma exacerbation Patient Disposition: Home, Self-Care Instructions: Asthma (ED) Additional Instructions: You has been started on a course of prednisone. You received a dose here early this morning. Take the additional doses once a day until done. You have also been started on a course of azithromycin, an antibiotic. You received a dose here early this morning. Please take the additional doses once a day until done. I have also sent a prescription for the inhaler budesonide/formoterol. This for this asthma exacerbation 1-2 puffs every 2-4 hours as needed for your asthma symptoms. Once you get over this asthma exacerbation I would recommend continuing, one puff twice a day for maintenance of your asthma. 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 Return to the emergency room if worse. Prescriptions: New azithromycin 250 mg tablet 250 mg PO DAILY 4 Days Qty: 4 0RF Rx Instructions: start on day 2 of therapy prednisone 20 mg tablet 20 mg PO DAILY Qty: 12 0RF Rx Instructions: Take 3 tablets by mouth daily for 2 days, then take 2 tablets by mouth daily for 3 days. budesonide-formoterol 80-4.5 mcg/actuation HFA aerosol inhaler 1 puff inhalation BID Qty: 10.2 0RF No Action albuterol sulfate 90 mcg/actuation HFA aerosol inhaler 2 puff inhalation Q4-6H PRN (Reason: shortness of breath or wheezing) Qty: 6.7 0RF norethindrone ac-eth estradiol [Microgestin 1.5/30 (21)] 1.5-30 mg-mcg tablet 1 tab PO DAILY 90 Days Qty: 90 4RF budesonide-formoterol [Symbicort] 160-4.5 mcg/actuation HFA aerosol inhaler 2 puff inhalation BID 30 Days Qty: 10.2 6RF Referrals: Maximo Luis MD [Primary Care Provider] - (Asthma exacerbation) Aly Taylor MD [Physician] - (Asthma exacerbation) Print Language: Sami
[2024-04-29 02:19] LABS: Influenza A PCR NEGATIVE (Negative); Influenza B PCR NEGATIVE (Negative); Resp Syncy Virus RNA Qual PCR NEGATIVE (Negative); SARS COV2 PCR INHOUSE NEGATIVE (Negative)
[2024-04-29 02:31] VITALS: BP 120/70; PULSE 86; RESP 18; TEMP 36.6; O2SAT 100
[2024-04-29 02:36] VITALS: PULSE 80; RESP 18; O2SAT 98
[2024-04-29] MEDS: Albuterol/Iprat 2.5/0.5MG 3 ML AMPUL.NEB INHALE (02:36)
[2024-04-29 02:46] LABS: HCG Quantitative < 2 mIU/mL
[2024-04-29] MEDS: predniSONE 20 MG TABLET 60 MG PO (02:50)
[2024-04-29] MEDS: Azithromycin 500 MG TABLET PO (03:03)
[2024-04-29 03:15] VITALS: BP 120/70; PULSE 80; RESP 18; TEMP 36.7; O2SAT 100
== END 2024-04-29 03:16 | disposition home or self-care (01) ==
PROVIDERS: Emergency Provider Emergency Medicine; PCP Internal Medicine
DX: J45.901 Unspecified asthma with (acute) exacerbation (principal); I49.8 Other specified cardiac arrhythmias; R07.89 Other chest pain; R05.9 Cough, unspecified; Z79.899 Other long term (current) drug therapy; Z03.818 Encounter for observation for suspected exposure to other biological agents ruled out
CPT/HCPCS: 0241U; 36415; 71045; 80048; 84484; 84702; 85025; 93005; 94640; 99284; 99285

== ENCOUNTER → 2024-04-29 00:48 | Outpatient (BNV) | payer OTHER, SELFPAY | PROVIDERS: Emergency Provider Emergency Medicine; PCP Internal Medicine; Visit Provider Internal Medicine | DX: R07.9 Chest pain, unspecified (principal) | CPT/HCPCS: 93010 ==

== ENCOUNTER 2024-05-16 13:13 | Outpatient (AMB) | payer OTHER, SELFPAY ==
--- NOTE | 2024-05-16 13:15 | A.OFFVIS_ITS ---
Vital Signs 05/16/24 13:16 Height 5 ft 2 in Weight 186 lb 2 oz BMI 34.0 BP 100/58 L Blood Pressure Location Lt brachial Position Sitting Pulse 79 Pulse Source Pulse Oximeter Pulse Oximetry (%) 100 Oxygen Delivery Method Room Air Intake Visit Reasons: Asthma Exacerbation Allergies No Known Allergies Allergy (Verified 05/16/24 13:19) HPI HPI Asthma Exacerbation: Details: Kaylan is a pleasant 28 year old female, former minimal smoker, with underlying history of asthma since childhood. She is under the care of Dr. Taylor and presents today for an acute visit. She was recently [place] [facility] [place] acute exacerbation on 04[place]29, respiratory viral panel negative, CXR unremarkable, treated with prednisone and a zpak. She reports resolution of symptoms after completing course however symptoms recurred after recent trip to [facility] 4 days ago. She started with productive cough with yellow sputum, sinus congestion, wheezing, dyspnea and chest tightness. She did feel feverish with associated chills. Of note, she was previously prescribed Symbicort 160 mcg however did not start taking until recent ED evaluation. [facility] Medical History Obesity (BMI 30-39.9) Attention deficit disorder (ADD) Generalized anxiety disorder Overweight (BMI 25.0-29.9) Asthma Surgical History History of eye surgery History of wisdom tooth extraction Family History Mother Pre-diabetes Father History of hypertension Maternal Grandmother No problems noted. Maternal Grandfather No problems noted. Paternal Grandmother No problems noted. Paternal Grandfather No problems noted. Sister No problems noted. Social History Household Members: Significant Other and Children Both parents involved: Yes Housing: Apartment Alcohol intake: current Alcohol intake frequency: a few times a month Alcohol type: wine Patient Tobacco Use Status: Never used Tobacco e-Cigarette/Vaping Use: Never Used Second Hand Smoke Exposure: No service: No Current occupational status: unemployed Sexual orientation: Straight/Heterosexual Gender identity: Female Cognitive needs: No Hearing needs: No Vision needs: No Female Reproductive History Menstrual Age of Menarche: 14 Review of Systems Const Denies chills, Denies excessive sweating, Denies fever(s), Denies headache(s) and Denies night sweats Eyes Denies dry eyes, Denies irritation and Denies itchy eyes ENT Reports Normal hearing present, Denies headache(s), Denies nasal congestion, Denies nasal discharge, Denies post nasal drip and Denies sore throat Card Denies chest pain, Denies chest pain at rest, Denies chest pain with activity, Denies claudication, Denies leg edema, Denies orthopnea and Denies paroxysmal nocturnal dyspnea Resp Denies excessive phlegm production, Denies pain on inspiration, Denies pain with cough and Denies stridor Musc Denies myalgias Neuro Reports Normal hearing present and Denies headache(s) Endo Denies excessive sweating Damian/Lymph Denies lymphadenopathy Aller/Immun Denies itchy eyes and Denies seasonal rhinorrhea Physical Exam Vital Signs: Last Vital Signs Pulse 79 05/16/24 13:16 BP 100/58 L 05/16/24 13:16 Pulse Ox 100 05/16/24 13:16 Oxygen Delivery Method Room Air 05/16/24 13:16 BMI result Body Mass Index 34.0 Const General: cooperative, healthy appearing, comfortable, no acute distress, well developed and alert Nutritional Appearance: obese Orientation/consciousness: patient oriented x3 Limitations: no limitations HEENT Head: Yes normal to inspection, Yes normocephalic and Yes atraumatic Ears: hearing grossly normal bilaterally and external ears normal Eyes General: appearance normal, both eyes and all related structures Eyelids: Yes eyelids normal Sclerae: sclerae normal EOM: EOMs intact bilaterally Neck Neck: Yes normal visual inspection and Yes no lymphadenopathy Lymphatic: no lymphadenopathy noted Chest Chest palpation & inspection: normal inspection of the chest Resp Effort & Inspection: normal respiratory effort, able to speak in complete sentences, no audible wheezes, Actively coughing, no stridor, not tachypneic, no tripod positioning and no use of accessory muscles Auscultation: diminished lung sounds Cardio Jugular venous distension: no JVD Rate: regular rate Rhythm: regular rhythm Skin Other: warm, dry General skin exam: no rashes or lesions noted Neuro General: patient oriented x3 Cranial nerves: Yes Normal hearing present Cognition (Neuro): normal cognition Gait exam (Neuro): Normal gait present Extrem General: Yes normal to inspection, Yes capillary refill normal, Yes no clubbing, cyanosis or edema and Yes no pedal edema Psych Appearance: grossly normal and well kempt Speech and movement: Normal speech and movement present and Clear speech present Affect: normal affect Attitude: cooperative Thought process: Normal thought process present Thought content: Normal thought content present Insight: Good insight present (Psych) Judgement: Good judgement present (Psych) Assessment & Plan Assessment & Plan (1) Asthma: Code(s): J45.909 - Unspecified asthma, uncomplicated Category: Medical Qualifiers: Asthma complication type: uncomplicated Asthma persistence: unspecified Asthma severity: unspecified severity Qualified Code(s): J45.909 - Unspecified asthma, uncomplicated (2) Environmental allergies: Code(s): Z91.09 - Other allergy status, other than to drugs and biological substances Category: Medical Plan Will treat bronchitic symptoms with doxycycline as well as albuterol for nebulizer and nebulizer for home use. She is aware to call if symptoms do not improve. All questions were answered and patient is in agreement of plan. Will follow up with Dr. Taylor for regularly scheduled appointment or sooner if needed. Medications: New doxycycline hyclate 100 mg PO BID 7 caps 0RF prednisone 40 mg (2 x 20 mg) PO DAILY 10 tabs 0RF albuterol sulfate 2.5 mg (3 mL) inhalation Q4-6H PRN 180 mL 0RF shortness of breath or wheezing Coding Level of Care Code Est Pt Level 4 (16384) Diagnoses Uncomplicated asthma, unspecified asthma severity, unspecified whether persistent J45.909 Asthma complication type: uncomplicated Asthma persistence: unspecified Asthma severity: unspecified severity Environmental allergies Z91.09
[2024-05-16 13:16] VITALS: BP 100/58; PULSE 79; O2SAT 100; BMI 34.0
== END 2024-05-16 14:23 | disposition home or self-care (01) ==
PROVIDERS: PCP Internal Medicine; Visit Provider Nurse Practitioner Family
DX: J45.909 Unspecified asthma, uncomplicated (principal); Z91.09 Other allergy status, other than to drugs and biological substances
CPT/HCPCS: 99214

== ENCOUNTER → 2024-05-16 13:13 | Outpatient (BNVA) | payer OTHER, SELFPAY | PROVIDERS: PCP Internal Medicine; Visit Provider Nurse Practitioner Family | DX: J45.909 Unspecified asthma, uncomplicated (principal); Z91.09 Other allergy status, other than to drugs and biological substances | CPT/HCPCS: 99212 ==

== ENCOUNTER 2024-06-17 10:22 | Outpatient (AMB) | payer OTHER, SELFPAY ==
--- NOTE | 2024-06-17 10:44 | A.OFFVIS_ITS ---
Intake Visit Reasons: Ultrasound results Downstream Biomanufacturing Technician: Downstream Biomanufacturing Technician Present (Zulema) Accompanied by: Self / Same As Patient Allergies No Known Allergies Allergy (Verified 06/17/24 10:44) HPI Comments Details: The patient is presenting for follow-up to discuss the results of her abnormal uterine bleeding workup and options of treatment. The following workup was done.: H&H= 11.8/36.1 TSH, hCG, prolactin, GC and chlamydia were negative. Pap smear done in 08/03 was negative. Pelvic ultrasound showed the following: IMPRESSION: Endometrium is linear with thickness of 1.5 mL. Unremarkable bilateral ovaries. The patient discontinued control pills on her own and would like to be off any kind of control for the time being, since then her menstrual cycle has been regular [facility] Medical History Obesity (BMI 30-39.9) Attention deficit disorder (ADD) Generalized anxiety disorder Overweight (BMI 25.0-29.9) Asthma Surgical History History of eye surgery History of wisdom tooth extraction Family History Mother Pre-diabetes Father History of hypertension Maternal Grandmother No problems noted. Maternal Grandfather No problems noted. Paternal Grandmother No problems noted. Paternal Grandfather No problems noted. Sister No problems noted. Social History Household Members: Significant Other and Children Both parents involved: Yes Housing: Apartment Alcohol intake: current Alcohol intake frequency: a few times a month Alcohol type: wine Patient Tobacco Use Status: Never used Tobacco e-Cigarette/Vaping Use: Never Used Second Hand Smoke Exposure: No service: No Current occupational status: unemployed Sexual orientation: Straight/Heterosexual Gender identity: Female Cognitive needs: No Hearing needs: No Vision needs: No Female Reproductive History Menstrual Age of Menarche: 14 Review of Systems Const All systems reviewed & are unremarkable except as noted in HPI and below Reports as per HPI and Reports no additional complaints GI Reports no additional complaints Reports no additional complaints Assessment & Plan Assessment & Plan (1) Abnormal uterine bleeding (AUB): Code(s): N93.9 - Abnormal uterine and vaginal bleeding, unspecified Category: Medical Plan: Discussed with the patient the results of the work up done . Instructions given the patient to call in case of abnormal uterine bleeding recurs. Discussed with the patient different options of control including control pills, Nexplanon, Depo-Provera, Mirena IUD and ParaGard IUD. The patient would like to use condoms as a method of control. Explained to the patient the high failure rate of condom use as a method of ,, the patient verbalized understanding . All questions answered, the patient verbalized understanding Medications: Discontinued azithromycin start on day 2 of therapy Discontinued Reason: Patient no longer taking 250 mg PO DAILY 4 days 4 tabs 0RF norethindrone ac-eth estradiol 1.5-30 mg-mcg (Microgestin) Discontinued Reason: Patient no longer taking 1 tab PO DAILY 3 months 90 tabs 4RF doxycycline hyclate Discontinued Reason: Patient no longer taking 100 mg PO BID 7 caps 0RF Coding Level of Care Code Est Pt Level 3 (90179) Diagnoses Abnormal uterine bleeding (AUB) N93.9
== END 2024-06-17 11:50 | disposition home or self-care (01) ==
LOC: HO.HWS 10:22
PROVIDERS: PCP Internal Medicine; Visit Provider Obstetrics & Gynecology
DX: N93.9 Abnormal uterine and vaginal bleeding, unspecified (principal)
CPT/HCPCS: 99213

== ENCOUNTER → 2024-06-17 10:22 | Outpatient (BNVA) | payer OTHER, SELFPAY | PROVIDERS: PCP Internal Medicine; Visit Provider Obstetrics & Gynecology | DX: N93.9 Abnormal uterine and vaginal bleeding, unspecified (principal) | CPT/HCPCS: 99212 ==

== ENCOUNTER 2024-08-08 09:48 | Outpatient (AMB) | payer OTHER, SELFPAY ==
--- NOTE | 2024-08-08 09:49 | A.OFFVIS_ITS ---
Vital Signs 08/08/24 09:50 Height 5 ft 2 in Weight 196 lb BMI 35.8 BP 102/58 L Blood Pressure Location Lt brachial Position Sitting Pulse 80 Pulse Source Doppler Pulse Oximetry (%) 99 Oxygen Delivery Method Room Air Intake Visit Reasons: Asthma Exacerbation Allergies No Known Allergies Allergy (Verified 08/08/24 09:53) HPI HPI Asthma Exacerbation: Details: 28-year-old lady, former minimal smoker followed for asthma and environmental allergies. Patient's symptoms has been well controlled on current regimen of Symbicort 160, albuterol MDI/nebs. She denies recent exacerbations. [facility] Medical History Obesity (BMI 30-39.9) Attention deficit disorder (ADD) Generalized anxiety disorder Overweight (BMI 25.0-29.9) Asthma Surgical History History of eye surgery History of wisdom tooth extraction Family History Mother Pre-diabetes Father History of hypertension Maternal Grandmother No problems noted. Maternal Grandfather No problems noted. Paternal Grandmother No problems noted. Paternal Grandfather No problems noted. Sister No problems noted. Social History Household Members: Significant Other and Children Both parents involved: Yes Housing: Apartment Alcohol intake: current Alcohol intake frequency: a few times a month Alcohol type: wine Patient Tobacco Use Status: Never used Tobacco e-Cigarette/Vaping Use: Never Used Second Hand Smoke Exposure: No service: No Current occupational status: unemployed Sexual orientation: Straight/Heterosexual Gender identity: Female Cognitive needs: No Hearing needs: No Vision needs: No Female Reproductive History Menstrual Age of Menarche: 14 Review of Systems Const Denies daytime sleepiness, Denies excessive sweating, Denies fatigue, Denies fever(s), Denies lethargy, Denies malaise, Denies night sweats, Denies snoring and Denies weight loss Eyes Denies blurry vision and Denies itchy eyes ENT Denies nasal congestion, Denies post nasal drip, Denies sinus pain, Denies sinus pressure and Denies other ( Thrush) Card Denies chest pain, Denies pedal edema, Denies dyspnea, Denies orthopnea and Denies paroxysmal nocturnal dyspnea Resp Denies cough, Denies hemoptysis, Denies excessive phlegm production, Denies dyspnea, Denies snoring and Denies wheezing GI Denies abdominal pain and Denies heartburn Musc Denies myalgias, Denies arthralgias and Denies joint swelling Skin/Breast Denies rash Neuro Denies memory loss and Denies seizure-like activity Psych Denies abnormal sleep pattern, Denies anxiety and Denies memory loss Endo Denies excessive sweating, Denies fatigue and Denies heat intolerance Damian/Lymph Denies easy bruising Aller/Immun Denies itchy eyes, Denies seasonal rhinorrhea and Denies wheezing Physical Exam Vital Signs: Last Vital Signs Pulse 80 08/08/24 09:50 BP 102/58 L 08/08/24 09:50 Pulse Ox 99 08/08/24 09:50 Oxygen Delivery Method Room Air 08/08/24 09:50 BMI result Body Mass Index 35.8 Const General: no acute distress and alert Nutritional Appearance: not obese Orientation/consciousness: Other orientation findings ( oriented) HEENT Head: Yes atraumatic Eyes General: appearance normal, both eyes and all related structures Sclerae: sclerae normal EOM: EOMs intact bilaterally Neck Neck: Yes supple Lymphatic: no lymphadenopathy noted Resp Effort & Inspection: normal respiratory effort and no use of accessory muscles Auscultation: clear to auscultation bilaterally Cardio Rate: regular rate Rhythm: regular rhythm Heart sounds: no gallops, no murmurs and no rubs Skin General skin exam: other ( warm) Extrem General: No clubbing, No cyanosis and No edema Assessment & Plan Assessment & Plan (1) Asthma: Code(s): J45.909 - Unspecified asthma, uncomplicated Category: Medical Qualifiers: Asthma severity: unspecified severity Asthma persistence: unspecified Asthma complication type: uncomplicated Qualified Code(s): J45.909 - Unspecified asthma, uncomplicated Plan: Well controlled on Symbicort 160, albuterol MDI/nebs. Continue current regimen. (2) Environmental allergies: Code(s): Z91.09 - Other allergy status, other than to drugs and biological substances Category: Medical Plan: Significantly improved. Continue to monitor clinically. Coding Level of Care Code Est Pt Level 3 (66775) Diagnoses Uncomplicated asthma, unspecified asthma severity, unspecified whether persistent J45.909 Asthma severity: unspecified severity Asthma persistence: unspecified Asthma complication type: uncomplicated Environmental allergies Z91.09
[2024-08-08 09:50] VITALS: BP 102/58; PULSE 80; O2SAT 99; BMI 35.8
== END 2024-08-08 10:22 | disposition home or self-care (01) ==
LOC: HO.HPS 09:48
PROVIDERS: PCP Internal Medicine; Visit Provider Internal Medicine Pulmonary Disease
DX: J45.909 Unspecified asthma, uncomplicated (principal); Z91.09 Other allergy status, other than to drugs and biological substances
CPT/HCPCS: 99213

== ENCOUNTER → 2024-08-08 09:48 | Outpatient (BNVA) | payer OTHER, SELFPAY | PROVIDERS: PCP Internal Medicine; Visit Provider Internal Medicine Pulmonary Disease | DX: J45.909 Unspecified asthma, uncomplicated (principal); Z91.09 Other allergy status, other than to drugs and biological substances | CPT/HCPCS: 99212 ==

== ENCOUNTER 2024-09-10 09:42 | Outpatient (AMB) | payer OTHER, SELFPAY ==
--- NOTE | 2024-09-10 09:44 | AM.OFFWIN_ITS ---
Intake Vital Signs 09/10/24 09:45 Height 5 ft 2 in Weight 199 lb 6 oz BMI 36.5 BP 140/80 H Blood Pressure Location Lt brachial Position Sitting Temp 97.8 F Temp Source Oral Pulse Oximetry (%) 98 Intake Visit Reasons: EP asthma flare Intake Note: Patient complains of Asthma flare up. Patient Tobacco Use Status: Never used Tobacco Tariff Inspector Required: No Retail Pharmacy Technician: Present Accompanied by: children Allergies No Known Allergies Allergy (Verified 09/10/24 09:44) Do you need a note to return to daycare/school/sports/work: No HPI HPI Comments History of Present Illness Details She presents with asthma symptoms + chest tightness worsening from baselin e; ongoing x 2 days She has been using her Symbicort. Does not have nebulizer at home or prn Albuterol Son + pneumonia and on antibiotics She said + cough without phlegm Feels like congestion is still stuck in there No fever or chills No congestion No ST No other medicine for symptoms PFSH Medical History Obesity (BMI 30-39.9) Attention deficit disorder (ADD) Generalized anxiety disorder Overweight (BMI 25.0-29.9) Asthma Surgical History History of eye surgery History of wisdom tooth extraction Family History Mother Pre-diabetes Father History of hypertension Maternal Grandmother No problems noted. Maternal Grandfather No problems noted. Paternal Grandmother No problems noted. Paternal Grandfather No problems noted. Sister No problems noted. Social History Household Members: Significant Other and Children Both parents involved: Yes Housing: Apartment Alcohol intake: current Alcohol intake frequency: a few times a month Alcohol type: wine Patient Tobacco Use Status: Never used Tobacco e-Cigarette/Vaping Use: Never Used Second Hand Smoke Exposure: No service: No Current occupational status: unemployed Sexual orientation: Straight/Heterosexual Gender identity: Female Cognitive needs: No Hearing needs: No Vision needs: No Female Reproductive History Menstrual Age of Menarche: 14 Review of Systems Const Denies chills and Denies fever(s) ENT Denies otalgia, Denies nasal congestion and Denies throat swelling Card Denies chest pain, Denies syncope and Reports dyspnea Resp Denies change in phlegm color, Reports cough, Reports dyspnea and Reports wheezing Musc Denies myalgias Skin/Breast Denies rash Neuro Denies syncope Aller/Immun Denies throat swelling and Reports wheezing Physical Exam Vital Signs: Last Vital Signs Temp 97.8 F 09/10/24 09:45 BP 140/80 H 09/10/24 09:45 BMI result Body Mass Index 36.5 General: Non-toxic, NAD. Speaking full sentences. Skin: Warm dry throughout Eye: EOMI HENT: Airway patent. Uvula midline. No pharyngeal erythema or edema. No YOUTH SERVICES LIBRARIAN. Bilateral canals clear. TM non-erythematous, non-bulging. No TM perforation or hemotympanum noted. Respiratory: CTA bilaterally. No wheezes, rales or rhonchi Cardiac: RRR. No murmur MSK: Full ROM extremities. Neurology: Alert. No aphasia or facial droop. Gait without abnormality Psych: Good mood and affect Assessment & Plan Assessment & Plan (1) Asthma exacerbation: Code(s): J45.901 - Unspecified asthma with (acute) exacerbation Qualifiers: Asthma severity: mild Asthma persistence: unspecified Qualified Code(s): J45.901 - Unspecified asthma with (acute) exacerbation Plan: Patient seen and evaluated. Lungs CTA at this time; + exposure to PNA but will monitor for symptoms and call with concerns Prednisone with food. Avoid alcohol and nsaids Albuterol neb script refilled Monitor symptoms and call with concerns O2 stable 98% on RA in office Patient gave verbal understanding and had no additional questions or concerns at time of discharge All questions answered Medications: New prednisone 40 mg (2 x 20 mg) PO DAILY 8 tabs 0RF Refilled albuterol sulfate 2.5 mg (3 mL) inhalation Q4-6H PRN 180 mL 0RF shortness of breath or wheezing Coding Level of Care Code Est Pt Level 3 (92103) Diagnoses Mild asthma with exacerbation, unspecified whether persistent J45.901 Asthma severity: mild Asthma persistence: unspecified
[2024-09-10 09:45] VITALS: BP 140/80; TEMP 36.6; O2SAT 98; BMI 36.5
== END 2024-09-10 10:06 | disposition home or self-care (01) ==
PROVIDERS: PCP Internal Medicine; Visit Provider Physician Assistant
DX: J45.901 Unspecified asthma with (acute) exacerbation (principal)

== ENCOUNTER → 2024-09-10 09:42 | Outpatient (BNVA) | payer OTHER, SELFPAY | PROVIDERS: PCP Internal Medicine; Visit Provider Physician Assistant | DX: J45.901 Unspecified asthma with (acute) exacerbation (principal) | CPT/HCPCS: 99212 ==

== ENCOUNTER 2025-01-15 11:02 | Outpatient (AMB) | payer OTHER, SELFPAY ==
--- NOTE | 2025-01-15 11:03 | MHC.OFFVIS ---
Intake Visit Reasons: late menses Intake Note: 9 days late for menses Accompanied by: Self / Same As Patient Allergies No Known Allergies Allergy (Verified 09/10/24 09:44) HPI Comments Details: Presenting complaining of missing her menstrual cycles for the last 8 days, history of irregular heavy menstrual cycles associated with minimal hair growth and acne [facility] Medical History Obesity (BMI 30-39.9) Attention deficit disorder (ADD) Generalized anxiety disorder Overweight (BMI 25.0-29.9) Asthma Surgical History History of eye surgery History of wisdom tooth extraction Family History Mother Pre-diabetes Father History of hypertension Maternal Grandmother No problems noted. Maternal Grandfather No problems noted. Paternal Grandmother No problems noted. Paternal Grandfather No problems noted. Sister No problems noted. Social History Household Members: Significant Other and Children Both parents involved: Yes Housing: Apartment Alcohol intake: current Alcohol intake frequency: a few times a month Alcohol type: wine Patient Tobacco Use Status: Never used Tobacco e-Cigarette/Vaping Use: Never Used Second Hand Smoke Exposure: No service: No Current occupational status: unemployed Sexual orientation: Straight/Heterosexual Gender identity: Female Cognitive needs: No Hearing needs: No Vision needs: No Female Reproductive History Menstrual Age of Menarche: 14 Results AMB Test Urine AMB Test Urine Negative Last Edit by Marilia Patel LPN on 01/15/25 11:30 Results Reviewed Results Reviewed: Laboratory Last Values [facility] Clinic Negative 01/15/25 11:29 Assessment & Plan Assessment & Plan (1) Abnormal uterine bleeding (AUB): Comment: with hirsutism Code(s): N93.9 - Abnormal uterine and vaginal bleeding, unspecified Category: Medical Plan: Urine test done in the office was negative. TSH, prolactin, hCG, testosterone total and free and 17 hydroxyprogesterone and pelvic ultrasound ordered Prometrium 200 mg p.o. q.d. for 5 days, instructions given the patient to report positive or negative bleeding Instructions given the patient to schedule follow-up appointment within 2 weeks Orders: Orders AMB HCG Urine Test Today Z32.02 - Encounter for test, result negative Prolactin Today N93.9 - Abnormal uterine and vaginal bleeding, unspecified HCG Quantitative Today N93.9 - Abnormal uterine and vaginal bleeding, unspecified Complete Blood Count no Diff Today N93.9 - Abnormal uterine and vaginal bleeding, unspecified US pelvic and transvaginal Today N93.9 - Abnormal uterine and vaginal bleeding, unspecified TSH reflex Free T4 Today N93.9 - Abnormal uterine and vaginal bleeding, unspecified US pelvic and transvaginal Today N93.9 - Abnormal uterine and vaginal bleeding, unspecified Medications: New progesterone micronized (Prometrium) Take the pill 1 tablet a day for 5 days 200 mg PO BEDTIME 5 caps 0RF 5 days Coding Level of Care Code Est Pt Level 3 (88121) Diagnoses Abnormal uterine bleeding (AUB) N93.9
--- OUTSIDE RECORDS SUMMARY | 2025-01-15 12:40 | XMS_ITS | Clinical Summary ---
Author Organization [facility] Address [address] [place] [id number] Phone Care Team Providers Care Fur Trimming Machine Operator Name Role Phone Pcp, Unknown Primary Care Provider Unavailabl e Allergies No known active allergies Medications No known medications Active Problems No known active problems Social History Tobacco Use Types Packs/Day Years Used Date Smoking Tobacco: Never Smokeless Tobacco: Never Education Answer Date Recorded Are you interested in more education? Not on mary beth e 07/05/2023 Are you concerned about learning? Not on file 07/05/2023 No 07/05/2023 No 07/05/2023 Digital Access Answer Date Recorded No 07/05/2023 No 07/05/2023 Reliable internet access at home? Not on file 07/05/2023 Device with a working camera? Not on file Comments Unknown Sex and Gender Information Value Date Recorded Sex Assigned at Not on file Legal Sex Female 8:25 AM EST Gender Identity Not on file Sexual Orientation Not on file Last Filed Vital Signs Vital Sign Reading Time Taken Comments Blood Pressure 105/71 07/05/2023 8:39 AM EST Pulse 83 07/05/2023 8:39 AM EST Temperature 36.9 C (98.4 F) 07/05/2023 8:39 AM EST Respiratory Rate 18 07/05/2023 8:39 AM EST Oxygen Saturation 98% 07/05/2023 8:39 AM EST Inhaled Oxygen Concentration - - Weight - - Height - - Body Mass Index - - Plan of Treatment Health Maintenance Due Date Last Done Comments Adult Td,Tdap Booster 1997 DEPRESSION SCREENING 2009 HEPATITIS C SCREENING 09/29/2015 HIV ONE-TIME SCREENING (18-6 5 YEARS) 09/29/2015 PAP SMEAR 2018 COVID-19 VACCINE (1 - 2024-2 5 season) 2024 SMOKING STATUS SCREENING (On ce After 26 Yrs) Completed 07/05/2023 HEPATITIS A VACCINES Aged Out No long er eligible based on patient's age to complete this topic HIB VACCINES Aged Out No longer eligi ble based on patient's age to complete this topic MENINGOCOCCAL VACCINES (ACWY) Aged Out No longer eligible based on patient's age to complete this topic MENINGOCOCCAL VACCINES (B) Aged Out N o longer eligible based on patient's age to complete this topic PNEUMOCOCCAL VACCINES (0-49 years) Aged Out No longer eligible based on patient's age to complete this topic Medical Devices Not on file Insurance C3 ACO C3 ACO C3 ACO C3 ACO C3 ACO C3 ACO Care Teams Fur Trimming Machine Operator Relationship Specialty Start Date End Date Pcp, Unknown PCP - General 07/05/23 Additional Source Comments The information contained in this document represents components of the legal health record. It is not the complete legal health record.[facility]
== END 2025-01-15 11:52 | disposition home or self-care (01) ==
LOC: HO.HWS 11:02
PROVIDERS: PCP Internal Medicine; Visit Provider Obstetrics & Gynecology
DX: Z32.02 Encounter for pregnancy test, result negative (principal); N93.9 Abnormal uterine and vaginal bleeding, unspecified
CPT/HCPCS: 99213

== ENCOUNTER 2025-01-15 11:02 | Outpatient (REF) | payer OTHER, SELFPAY ==
[2025-01-15 13:30] LABS: Hematocrit 38.4 % (37.0-47.0); Hemoglobin 12.3 g/dl (12.0-16.0); Mean Corpuscular HGB Conc 32.0 g/dl (31.0-35.0); Mean Corpuscular Hemoglobin 25.5 pg (27.0-33.0); Mean Corpuscular Volume 79.7 fL (80.0-98.0); NRBC Abs Auto 0.000 X10*3/uL (0.0-0.012); NRBC Pct Auto 0.0 /100WBC (0.0-0.2); Platelet Count 277 X10*3/uL (160-400); Red Blood Count 4.82 X10*6/uL (4.20-5.50); White Blood Count 6.8 X10*3/uL (4.8-10.8)
== END 2025-01-15 11:03 | disposition home or self-care (01) ==
LOC: HO.LAB 11:02
PROVIDERS: PCP Internal Medicine; Visit Provider Obstetrics & Gynecology
DX: N93.9 Abnormal uterine and vaginal bleeding, unspecified (principal); Z32.02 Encounter for pregnancy test, result negative
CPT/HCPCS: 36415; 81025; 84146; 84443; 84702; 85027; 99212

== ENCOUNTER 2025-01-22 12:40 | Outpatient (REF) | payer OTHER, SELFPAY ==
--- NOTE | ~2025-01-22 | US_ITS ---
CLINICAL HISTORY: N93.9 - Abnormal uterine and vaginal bleeding, unspecified US pelvis transvaginal Comparison: 04/21/2024 10:57 AM EST: US TRANSVAGINAL Findings: Transvaginal scanning performed. Anteverted uterus is 8.3 cm length. Normal myometrium. Endometrium 11 mm thickness. Right ovary 3.6 x 2.7 x 2.1 cm. Left ovary 3.8 x 1.8 x 1.4 cm. Normal color Doppler of both ovaries. There are multiple left ovarian follicles. No free fluid. IMPRESSION: 1. Normal pelvic ultrasound This document has been electronically signed by: Jacques Roberson MD on 01/23/2025 09:08:12
--- OUTSIDE RECORDS SUMMARY | 2025-01-22 16:52 | XMS_ITS | Clinical Summary ---
Author Organization [facility] Address [address] [place] [phone] Phone Care Team Providers Care Retail Commission Sales Associate Name Role Phone Pcp, Unknown Primary Care [...] (18-6 5 YEARS) 09/29/2015 PAP SMEAR 2018 INFLUENZA VACCINE (#1) 2024 COVID-19 VACCINE (2023-2 5 season) 2025 SMOKING STATUS SCREENING (On ce After 26 [...] ACO C3 ACO C3 ACO Care Teams Retail Commission Sales Associate Relationship Specialty Start Date End Date Pcp, Unknown PCP - General 07/05/23 Additional Source Comments The information contained in this document represents components of the legal health record. It is not the complete legal health record.[facility]
== END 2025-01-22 12:41 | disposition home or self-care (01) ==
LOC: HO.US 12:40
PROVIDERS: PCP Internal Medicine; Visit Provider Obstetrics & Gynecology
DX: N93.9 Abnormal uterine and vaginal bleeding, unspecified (principal)
CPT/HCPCS: 76830; 76856

== ENCOUNTER → 2025-01-22 12:42 | Outpatient (BNV) | payer OTHER, SELFPAY | PROVIDERS: PCP Internal Medicine; Visit Provider Specialist | DX: N93.9 Abnormal uterine and vaginal bleeding, unspecified (principal) | CPT/HCPCS: 76830; 76856 ==

== ENCOUNTER 2025-02-09 10:25 | Outpatient (REF) | payer OTHER, SELFPAY | END 2025-02-09 10:26 | disposition home or self-care (01) | LOC: HO.LNP 10:25 | PROVIDERS: PCP Internal Medicine; Visit Provider Obstetrics & Gynecology | DX: Z01.419 Encounter for gynecological examination (general) (routine) without abnormal findings (principal); N93.9 Abnormal uterine and vaginal bleeding, unspecified; L68.0 Hirsutism | CPT/HCPCS: 58100; 81025; 88175; 88305; 99395 ==

== ENCOUNTER 2025-02-09 10:25 | Outpatient (AMB) | payer OTHER, SELFPAY ==
--- NOTE | 2025-02-09 10:27 | A.OFFVIS_ITS ---
Vital Signs 02/09/25 10:30 Height 5 ft 2 in BP 110/60 Intake Visit Reasons: annual Allergies No Known Allergies Allergy (Verified 02/09/25 10:31) HPI Comments Details: Presenting for follow-up. The patient to Prometrium 200 mg p.o. q.d. for 5 days and had positive withdrawal bleed. H&H was 12.3/38.4 TSH, hCG, prolactin negative 08/03 last Pap was negative Pelvic ultrasound done in 02/05 was negative 17 hydroxyprogesterone, total and free testosterone and done yet [facility] Medical History Obesity (BMI 30-39.9) Attention deficit disorder (ADD) Generalized anxiety disorder Overweight (BMI 25.0-29.9) Asthma Surgical History History of eye surgery History of wisdom tooth extraction Family History Mother Pre-diabetes Father History of hypertension Maternal Grandmother No problems noted. Maternal Grandfather No problems noted. Paternal Grandmother No problems noted. Paternal Grandfather No problems noted. Sister No problems noted. Social History Household Members: Significant Other and Children Both parents involved: Yes Housing: Apartment Alcohol intake: current Alcohol intake frequency: a few times a month Alcohol type: wine Patient Tobacco Use Status: Never used Tobacco e-Cigarette/Vaping Use: Never Used Second Hand Smoke Exposure: No service: No Current occupational status: unemployed Sexual orientation: Straight/Heterosexual Gender identity: Female Cognitive needs: No Hearing needs: No Vision needs: No Female Reproductive History Menstrual Age of Menarche: 14 Review of Systems Const All systems reviewed & are unremarkable except as noted in HPI and below Reports as per HPI and Reports no additional complaints GI Reports no additional complaints Reports no additional complaints Office Procedures Endometrial Biopsy Details: The patient was counseled regarding the indication and benefits of endometrial sampling to rule out endometrial pathology including not limited to endometrial hyperplasia or endometrial cancer and others; The alternatives (Either do nothing vs. hysteroscopy D&C) & the risks were discussed with the patient including but not limited: pain, uterine perforation, bleeding, infection, possible injury to bladder, bowel, ureter, possible need for blood transfusion with all its possible risks. The patient verbalized understanding all questions answered and signed consent. Urine test done in the office was negative The patient was placed into the dorsal lithotomy position; a speculum was inserted in the vagina. Using aseptic technique for the procedure, the cervix was cleansed with Betadine. The anterior lip of the cervix was grasped with a single tooth tenaculum. The uterus was sounded to 7 cm with a 4 mm Pipelle was used. Tissues samples were obtained and placed in formalin, in a patient labeled container and sent to the pathology department. At the end of the procedure, there was minimal bleeding noted The patient tolerated the procedure well and was discharged in good condition with the following instructions: Nothing in the vagina until the bleeding stops. No sex until the bleeding stops, to call if any of the following occurs: fever (>100.4), flu-like symptoms, abdominal pain, heavy bleeding, four smelling vaginal discharge. The patient was instructed to schedule a Follow up appointment in 2 weeks to discuss pathology results of the biopsy and treatment options. This note was generated with a voice recognition program. Some errors may have been overlooked during the review of this note. Sometimes these errors may affect the content or meaning of a given sentence. [id number] Biopsy Assessment & Plan Assessment & Plan (1) Abnormal uterine bleeding (AUB): Comment: with hirsutism Code(s): N93.9 - Abnormal uterine and vaginal bleeding, unspecified Category: Medical Plan: Seventeen hydroxyprogesterone, total and free testosterone ordered EMB done to rule out endometrial pathology, see procedure note Discussed with the patient the results of her blood work included TSH, prolactin. Explained to the patient that she has a diagnosis of PCOS. D/w the patient the association of PCOS with an increase in the risk of diabetes or pre diabetes, heart disease, hypercholesterolemia and metabolic syndrome, endometrial hyperplasia and/or cancer if untreated and an increase in the risk of breast cancer. Recommended for the patient the following: -To call her pcp to screen for cardiovascular risk and diabetes with FBS and 2 hr GTT after 75 g OGTT, in addition to cholesterol, lipids, HDL and LDL. -Instructions given to patient to increase exercise combined with dietary changes reduce the risk of diabetes, explained to the patient that reduction in body weight has been associated with improved rate and decreased hirsutism as well as improvement in glucose tolerance and lipid levels -For her Menstrual cycle control: Discussed with the patient the following options of treatment : Combination low-dose hormonal contraceptives are recommended as the primary treatment for menstrual disorder Or Progestins: Cyclic progesterone versus Mirena IUD After discussion all the pros and cons risks benefits of each were discussed with the patient, the patient decided to proceed with control pills The patient decided to go ahead with BCP so a more detailed discussion re: control pills including mechanism of action, benefits (regular menses, less dysmenorrhea, less risk of ovarian cancer, ...), risks ( DVT, PE, Strokes, [place], increased breast ca, others). Instructions were given to use a back- up method for contraception x 1st 2 weeks, and to schedule a 3 months appointment for blood pressure check (2) Well woman exam: Code(s): Z01.419 - Encounter for gynecological examination (general) (routine) without abnormal findings Category: Medical Plan: Pap smear done. Counseled the patient about the recommended dietary allowance of 1000 mg of Calcium & 600 IU of vitamin D. The patient was instructed to perform monthly self-breast exams and to schedule an annual exam in a year; All questions answered and the patient verbalized understanding. Instructed the patient to schedule annual exam in a year Orders: Orders 17 Hydroxyprogesterone Today L68.0 - Hirsutism AMB Endometrial Biopsy Today N93.9 - Abnormal uterine and vaginal bleeding, unspecified Testosterone, Free/Total Today L68.0 - Hirsutism Medications: New desogestrel-ethinyl estradiol 0.15-0.03 mg (Apri) 1 tab PO DAILY 28 tabs 2RF 28 days Discontinued progesterone micronized (Prometrium) Take the pill 1 tablet a day for 5 days Discontinued Reason: Doctor's Order 200 mg PO BEDTIME 5 days 5 caps 0RF Coding Level of Care Code Est Pt Level 3 (81629) Procedure Only Diagnoses Abnormal uterine bleeding (AUB) N93.9 Well woman exam Z01.419 CPT Codes Endometrial Biopsy - CPT: 22077-[id number] Biopsy ([id number])
[2025-02-09 10:30] VITALS: BP 110/60
--- OUTSIDE RECORDS SUMMARY | 2025-02-09 11:40 | XMS_ITS | Clinical Summary ---
Author Organization [facility] Address [address] [place] [phone] Phone Care Team Providers Care Haz Tech Name Role Phone Pcp, Unknown Primary Care [...] ACO C3 ACO C3 ACO Care Teams Haz Tech Relationship Specialty Start Date End Date Pcp, Unknown PCP - General 07/05/23 Additional Source Comments The information contained in this document represents components of the legal health record. It is not the complete legal health record.[facility]
== END 2025-02-09 11:07 | disposition home or self-care (01) ==
LOC: HO.HWS 10:26
PROVIDERS: PCP Internal Medicine; Visit Provider Obstetrics & Gynecology
DX: Z01.419 Encounter for gynecological examination (general) (routine) without abnormal findings (principal); N93.9 Abnormal uterine and vaginal bleeding, unspecified; Z32.02 Encounter for pregnancy test, result negative
CPT/HCPCS: 58100; 99395

== ENCOUNTER 2025-02-09 11:09 | Outpatient (REF) | payer OTHER, SELFPAY ==
[2025-02-14 19:18] LABS: Testosterone, Free 8.8 pg/mL (0.1-6.4)
== END 2025-02-09 11:10 | disposition home or self-care (01) ==
LOC: HO.LAB 11:09
PROVIDERS: PCP Internal Medicine; Visit Provider Obstetrics & Gynecology
DX: Z01.419 Encounter for gynecological examination (general) (routine) without abnormal findings (principal); N93.9 Abnormal uterine and vaginal bleeding, unspecified; L68.0 Hirsutism
CPT/HCPCS: 36415; 83498; 84402; 84403

== ENCOUNTER 2025-02-16 09:34 | Outpatient (AMB) | payer OTHER, SELFPAY ==
--- NOTE | 2025-02-16 09:34 | A.OFFVIS_ITS ---
Intake Visit Reasons: EMB results Allergies No Known Allergies Allergy (Verified 02/09/25 10:31) HPI Comments Details: The patient scheduled a telehealth visit for follow-up to discuss the results of her abnormal uterine bleeding workup and options of treatment. The following workup was done.: H&H= 12.3/38.4 TSH, hCG, prolactin were negative. Testosterone total/free= 48 wnl/8.8 mild elevation Endometrial biopsy pathology showed the following: Proliferative endometrium; no atypia or hyperplasia identified Pap smear was done was negative. Pelvic ultrasound was unremarkable [facility] Medical History Obesity (BMI 30-39.9) Attention deficit disorder (ADD) Generalized anxiety disorder Overweight (BMI 25.0-29.9) Asthma Surgical History History of eye surgery History of wisdom tooth extraction Family History Mother Pre-diabetes Father History of hypertension Maternal Grandmother No problems noted. Maternal Grandfather No problems noted. Paternal Grandmother No problems noted. Paternal Grandfather No problems noted. Sister No problems noted. Social History Household Members: Significant Other and Children Both parents involved: Yes Housing: Apartment Alcohol intake: current Alcohol intake frequency: a few times a month Alcohol type: wine Patient Tobacco Use Status: Never used Tobacco e-Cigarette/Vaping Use: Never Used Second Hand Smoke Exposure: No service: No Current occupational status: unemployed Sexual orientation: Straight/Heterosexual Gender identity: Female Cognitive needs: No Hearing needs: No Vision needs: No Female Reproductive History Menstrual Age of Menarche: 14 Review of Systems Const All systems reviewed & are unremarkable except as noted in HPI and below Reports as per HPI and Reports no additional complaints GI Reports no additional complaints Reports no additional complaints Telehealth Telehealth Telehealth Platform: [facility] Location of provider rendering services: practice address Location of patient: address on file Patient Identification confirmed using: Name, : Yes Telehealth method: video Patient verbally consented to treatment: Yes Patient verbally consented to billing insurance company: Yes Patient informed of any privacy concerns related to visit: Yes Minutes spent on Phone/Video with Pt.: 4 Assessment & Plan Assessment & Plan (1) PCOS (polycystic ovarian syndrome): Code(s): E28.2 - Polycystic ovarian syndrome Category: Medical Plan: Discussed with the patient the results of her blood work included TSH, prolactin, testosterone, 17 hydroxyprogesterone and DHEA-S. Explained to the patient that she has a diagnosis of PCOS. D/w the patient the association of PCOS with an increase in the risk of diabetes or pre diabetes, heart disease, hypercholesterolemia and metabolic syndrome, endometrial hyperplasia and/or cancer if untreated and an increase in the risk of breast cancer. Recommended for the patient the following: -To call her pcp to screen for cardiovascular risk and diabetes with FBS and 2 hr GTT after 75 g OGTT, in addition to cholesterol, lipids, HDL and LDL. -Instructions given to patient to increase exercise combined with dietary changes reduce the risk of diabetes, explained to the patient that reduction in body weight has been associated with improved rate and decreased hirsutism as well as improvement in glucose tolerance and lipid levels -For her Menstrual cycle control: Discussed with the patient the following options of treatment : Combination low-dose hormonal contraceptives are recommended as the primary treatment for menstrual disorder Or Progestins: Cyclic progesterone versus Mirena IUD After discussion all the pros and cons risks benefits of each were discussed with the patient, the patient decided to proceed with control pills which were prescribed last visit, and a three-month follow-up appointment scheduled on 05/18 I spent a total of 20 minutes reviewing the chart, talking to the patient via video and documenting in the medical record. Coding Level of Care Code Tele Est Pt Level 3 (86342) Diagnoses PCOS (polycystic ovarian syndrome) E28.2
--- OUTSIDE RECORDS SUMMARY | 2025-02-16 10:56 | XMS_ITS | Clinical Summary ---
Author Organization [facility] Address [address] [place] [phone] Phone Care Team Providers Care Grade Recorder Name Role Phone Pcp, Unknown Primary Care [...] 2018 INFLUENZA VACCINE (#1) 2024 COVID-19 VACCINE ( - 2024-2 6 season) 2025 SMOKING STATUS SCREENING (On ce [...] ACO C3 ACO C3 ACO Care Teams Grade Recorder Relationship Specialty Start Date End Date Pcp, Unknown PCP - General 07/05/23 Additional Source Comments The information contained in this document represents components of the legal health record. It is not the complete legal health record.[facility]
== END 2025-02-16 09:48 | disposition home or self-care (01) ==
LOC: HO.HWS 09:34
PROVIDERS: PCP Internal Medicine; Visit Provider Obstetrics & Gynecology
DX: E28.2 Polycystic ovarian syndrome (principal)
CPT/HCPCS: 99213

== ENCOUNTER 2025-03-20 14:36 | Outpatient (AMB) | payer OTHER, SELFPAY ==
[2025-03-20 14:47] VITALS: BP 128/82; PULSE 101; TEMP 36.3; O2SAT 99; BMI 36.4
--- NOTE | 2025-03-20 14:47 | A.OFFPC_ITS ---
Vital Signs 03/20/25 14:47 Height 5 ft 2 in Weight 199 lb 2 oz BMI 36.4 BP 128/82 Blood Pressure Location Lt brachial Position Sitting Pulse 101 H Pulse Source Pulse Oximeter Temp 97.3 F Temp Source Temporal Artery Scan Pulse Oximetry (%) 99 Oxygen Delivery Method Room Air Intake Visit Reasons: Annual Exam PHQ-9 needed. Allergies No Known Allergies Allergy (Verified 03/20/25 15:34) Medication List - Last Reconciled 03/20/25 by Maximo Luis MD albuterol sulfate 90 mcg/actuation 2 puffs inhalation Q4-6H PRN albuterol sulfate 2.5 mg (3 mL) inhalation Q4-6H PRN budesonide-formoterol 160-4.5 mcg/actuation (Symbicort) 2 puffs inhalation BID 30 days desogestrel-ethinyl estradiol 0.15-0.03 mg (Apri) 1 tab PO DAILY 28 days Tobacco use date assessed: 03/20/25 Dental Screening Dental Screen Date: 03/20/25 Did you have a dental visit in the last 12 months?: Yes Did you have a dental problem in the last 6 months where you did not have access to dental care?: No Was dental information given to patient?: Patient has dentist HPI Annual Exam PHQ-9 needed. HPI Details Patient comes in today for her annual physical examination States that she feels okay She is now back on control Rx after she was diagnosed with PCOS by her paper cutter, Dr. Farnsworth, earlier this year She denies any headaches or dizziness Denies any chest pains, no increased SOB - states that her asthma has been well- controlled lately on her current Rx No nausea/vomiting, no abdominal pain No change in bowel habits noted She denies any acute urinary symptoms She is up-to-date on her yearly gynecology exam and pap smear ON LICENSE OF [facility] Medical History (Updated 03/20/25 @ 15:46 by Maximo Luis MD) PCOS (polycystic ovarian syndrome) Obesity (BMI 30-39.9) Attention deficit disorder (ADD) Generalized anxiety disorder Asthma Surgical History History of eye surgery History of wisdom tooth extraction Family History Mother Pre-diabetes Father History of hypertension Maternal Grandmother No problems noted. Maternal Grandfather No problems noted. Paternal Grandmother No problems noted. Paternal Grandfather No problems noted. Sister No problems noted. Social History Household Members: Significant Other and Children Both parents involved: Yes Housing: Apartment Alcohol intake: current Alcohol intake frequency: a few times a month Alcohol type: wine Patient Tobacco Use Status: Never used Tobacco e-Cigarette/Vaping Use: Never Used Second Hand Smoke Exposure: No service: No Current occupational status: unemployed Sexual orientation: Straight/Heterosexual Gender identity: Female Cognitive needs: No Hearing needs: No Vision needs: No Female Reproductive History Menstrual Age of Menarche: 14 Questionnaire PHQ-9 Over the last 2 weeks, how often have you been bothered by any of the following problems? 1. Little interest or pleasure in doing things: not at all 2. Feeling down, depressed, or hopeless: not at all 3. Trouble falling or staying asleep, or sleeping too much: not at all 4. Feeling tired or having little energy: not at all 5. Poor appetite or overeating: not at all 6. Feeling bad about yourself - or that you are a failure or have let yourself or your family down: not at all 7. Trouble concentrating on things, such as reading the newspaper or watching television: not at all 8. Moving or speaking so slowly that other people could have noticed. Or the opposite - being so fidgety or restless that you have been moving around a lot more than usual: not at all 9. Thoughts that you would be better off or of hurting yourself in some way: not at all Total score: 0 Depression Screening Interpretation: Negative Depression Screening Done: Yes 11748 - PHQ-9 Billing: Yes Source: Developed by Drs. Randal Douglas, Carmen Khoury, Bay Santiago and colleagues, with an educational shiva from [employer]. Thrive Questionnaire Date Thrive assessed: 03/20/25 I am a: Patient What is your living situation today?: I have a steady place to live Within the past 12 months, did the food you bought not last and you didn't have the money to get more?: Never true Within the past 12 months, did you worry whether your food would run out before you got money to buy more?: Never true Do you have trouble paying for medicines?: No Do you have trouble getting transportation to medical appointments?: No Do you have trouble paying your heating and electricity bill?: No Do you have trouble taking care of your child, family member or friend?: No Do you have trouble with day-to-day activities such as bathing, preparing meals, shopping, managing finances, etc.?: No Are you currently unemployed and looking for a job?: No Are you interested in more education?: No Please select the resources that you would like help with: None Currently or been in a relationship where the following occur: No concerns reported THRIVE Score: 0 AUDIT C Alcohol Use Questionnaire (AUDIT-C) 1. How often do you have a drink containing alcohol?: Never 3. How often do you have six or more drinks on one occasion?: Never Total Score: 0 Score Reviewed/Action Taken: Yes JAIDEN-7 AMB Questionnaire JAIDEN-7 Date JAIDEN - 7 assessed: 03/20/25 Feeling nervous, anxious, or on edge: 1 = Several days Not being able to stop or control worryin = Not at all Worrying too much about different things: 1 = Several days Trouble relaxin = Not at all Being so restless that it is hard to sit still: 0 = Not at all Becoming easily annoyed or irritable: 0 = Not at all Feeling afraid as if something awful might happen: 1 = Several days Total JAIDEN-7 score (0-4 normal; 5-9 mild; 10-14 moderate; 15-21 severe): 3 Source: Developed by Drs. Randal Douglas, Carmen Khoury, Bay Santiago and colleagues, with an educational shiva from [employer]. Review of Systems Const Denies chills, Denies fatigue, Denies fever(s), Denies headache(s) and Denies malaise Eyes Denies blurry vision, Denies change in vision, Denies irritation and Denies itchy eyes ENT Denies dysphagia, Denies dizziness, Denies otalgia, Denies headache(s), Denies nasal congestion, Denies neck pain, Denies odynophagia, Denies sinus pain and Denies sore throat Card Denies chest pain, Denies rapid heart rate, Denies irregular heart rhythm, Denies palpitations and Denies dyspnea Resp Denies chest congestion, Denies cough, Denies dyspnea and Denies wheezing GI Denies abdominal pain, Denies bloating, Denies constipation, Denies dysphagia, Denies heartburn, Denies diarrhea, Denies nausea, Denies odynophagia and Denies vomiting Denies hematuria, Denies urinary frequency, Denies dysuria, Denies urinary incontinence and Denies urinary urgency Musc Denies back pain, Denies arthralgias, Denies joint swelling, Denies muscle weakness and Denies neck pain Skin/Breast Denies breast pain, Denies breast mass, Denies change in pigmentation, Denies lesions, Denies rash and Denies unusual bruising Neuro Denies dizziness, Denies headache(s) and Denies paresthesias Psych Denies anxiety and Denies depression Endo Denies fatigue and Denies palpitations Damian/Lymph Denies easy bruising Aller/Immun Denies itchy eyes and Denies wheezing Physical exam (Primary Care) Vital Signs: Last Vital Signs Temp 97.3 F 03/20/25 14:47 Pulse 101 H 03/20/25 14:47 BP 128/82 03/20/25 14:47 Pulse Ox 99 03/20/25 14:47 Oxygen Delivery Method Room Air 03/20/25 14:47 BMI result Body Mass Index 36.4 Tobacco/Smoking Status: Tobacco use Status Tobacco use date assessed 03/20/25 03/20/25 14:51 Patient Tobacco Use Status Never used Tobacco 03/20/25 14:51 e-Cigarette/Vaping Use Never Used 03/20/25 14:51 PHQ-9: PHQ-9 Score PHQ-9: Total score 0 03/20/25 14:51 Depression Screening Interpretation: Negative Thrive Assessment: Date of Thrive Assessment Date Thrive assessed 03/20/25 03/20/25 14:51 Currently or been in a relationship where the following occur: No concerns reported Const General: no acute distress, alert and awake Orientation/consciousness: patient oriented x3 HENMT Head: Yes normocephalic and Yes atraumatic Ears: external ears normal, TM's normal bilaterally and EAC's normal General nose exam: No nasal discharge present Face and sinus: Yes normal facial exam and Yes sinuses nontender Teeth and gingiva: dentition normal Throat: Yes posterior oropharynx normal and Yes tonsils normal (no TP congestion) Eyes Eyelids: Yes eyelids normal Conjunctivae: conjunctivae normal Pupils: Equal, round and reactive pupils present EOM: EOMs intact bilaterally Neck Neck: Yes no lymphadenopathy and Yes supple Thyroid: Thyroid normal Resp Auscultation: clear to auscultation bilaterally, no rales and no wheezes Cardio Rate: regular rate Rhythm: regular rhythm Heart sounds: no murmurs GI Palpation (GI): Soft to palpation, nontender and No hepatosplenomegaly present Auscultation: normal bowel sounds General: Yes no CVA tenderness Back/Spine/Pelvis Back: no CVA tenderness Thoracic/Lumbar Spine: thoracic and lumbar spine normal to inspection Skin Lesions: no lesions Rashes: no rashes Neuro General: patient oriented x3, moves all extremities, no focal motor deficits and CN's II-XI intact bilaterally Cranial nerves: Yes Equal, round and reactive pupils present Cognition (Neuro): normal cognition Gait exam (Neuro): Normal gait present Extrem General: Yes no clubbing, cyanosis or edema Coding Level of Care Code Est Pt Prev Care 18-39y(61133) Diagnoses Annual physical exam Z00.00 Uncomplicated asthma, unspecified asthma severity, unspecified whether persistent J45.909 Asthma severity: unspecified severity Asthma persistence: unspecified Asthma complication type: uncomplicated PCOS (polycystic ovarian syndrome) E28.2 Generalized anxiety disorder F41.1 Obesity (BMI 30-39.9) E66.9 Additional Codes PHQ-9 - 96148 - PHQ-9 Billing: Yes ([id number]) Assessment & Plan Assessment & Plan (1) Annual physical exam: Code(s): Z00.00 - Encounter for general adult medical examination without abnormal findings Category: Medical Plan: Check labs VALERY to complete her annual exam today She is currently up-to-date with her yearly gynecology exam and pap smear (2) Asthma: Code(s): J45.909 - Unspecified asthma, uncomplicated Category: Medical Qualifiers: Asthma severity: unspecified severity Asthma persistence: unspecified Asthma complication type: uncomplicated Qualified Code(s): J45.909 - Unspecified asthma, uncomplicated Plan: Controlled Continue Symbicort 160-4.5 mcg 2 inhalations BID and Albuterol HFA 1 to 2 inhalations Q 6 hours PRN Follow up with pulmonary as scheduled (3) PCOS (polycystic ovarian syndrome): Code(s): E28.2 - Polycystic ovarian syndrome Category: Medical Plan: Continue Apri 0.15-0.03 mg QD Patient has already been advised that PCOS can increase her risk of diabetes or pre diabetes, heart disease, hypercholesterolemia and metabolic syndrome - will send her for some screening labs VALERY for risk stratification/assessment Follow up with gynecology (Dr. Farnsworth) as scheduled (4) Generalized anxiety disorder: Code(s): F41.1 - Generalized anxiety disorder Category: Medical Plan: Follow up with psychiatry as scheduled for continuing therapy/counseling Patient still declines offer to start her on Rx for her anxiety - does not feel that she needs to be on any Rx at this time (5) Obesity (BMI 30-39.9): Code(s): E66.9 - Obesity, unspecified Category: Medical Plan: Reinforced diet/exercise as tolerated/lose weight Plan To return in 1 year for her next annual physical examination Orders: Orders Complete Blood Count Auto Diff Today D64.9 - Anemia, unspecified, Z00.00 - Encounter for general adult medical examination without abnormal findings Lipid Panel Today E78.00 - Pure hypercholesterolemia, unspecified, Z00.00 - Encounter for general adult medical examination without abnormal findings TSH reflex Free T4 Today E78.00 - Pure hypercholesterolemia, unspecified, Z00.00 - Encounter for general adult medical examination without abnormal findings UA CC w/rflx Micro + Cult Today R30.0 - Dysuria, Z00.00 - Encounter for general adult medical examination without abnormal findings Comprehensive [place]. Panel Fast Today E78.00 - Pure hypercholesterolemia, unspecified, Z00.00 - Encounter for general adult medical examination without abnormal findings Vitamin D 25-OH Total Today E55.9 - Vitamin D deficiency, unspecified, Z00.00 - Encounter for general adult medical examination without abnormal findings Hemoglobin A1c Today E28.2 - Polycystic ovarian syndrome, R73.01 - Impaired fasting glucose
--- OUTSIDE RECORDS SUMMARY | 2025-03-20 16:09 | XMS_ITS | Clinical Summary ---
Author Organization [facility] Address [address] [place] [id number] Phone Care Team Providers Care Promotions Executive Producer Name Role Phone Pcp, Unknown Primary Care [...] ACO C3 ACO C3 ACO Care Teams Promotions Executive Producer Relationship Specialty Start Date End Date Pcp, Unknown PCP - General 07/05/23 Additional Source Comments The information contained in this document represents components of the legal health record. It is not the complete legal health record.[facility]
== END 2025-03-20 15:43 | disposition home or self-care (01) ==
LOC: HO.HMCH 14:37
PROVIDERS: PCP Internal Medicine; Visit Provider Internal Medicine
DX: Z00.00 Encounter for general adult medical examination without abnormal findings (principal); J45.909 Unspecified asthma, uncomplicated; E66.9 Obesity, unspecified; Z68.36 Body mass index [BMI] 36.0-36.9, adult; E28.2 Polycystic ovarian syndrome; F41.1 Generalized anxiety disorder

== ENCOUNTER → 2025-03-20 14:36 | Outpatient (BNVA) | payer OTHER, SELFPAY | PROVIDERS: PCP Internal Medicine; Visit Provider Internal Medicine | DX: Z00.00 Encounter for general adult medical examination without abnormal findings (principal); J45.909 Unspecified asthma, uncomplicated; E28.2 Polycystic ovarian syndrome; F41.1 Generalized anxiety disorder; E66.9 Obesity, unspecified; Z68.36 Body mass index [BMI] 36.0-36.9, adult | CPT/HCPCS: 96127; 99395 ==